=== PATIENT | female | born 1935 | race Caucasian/White ===

== ENCOUNTER 2017-03-27 16:15 | Emergency (ER) | payer MEDICARE ==
[2017-03-27] MEDS ORDERED: KETOROLAC 30 MG/ML VIAL IM ONE (16:44)
--- NOTE | 2017-03-27 16:44 | Emergency Department Record ---
History of Present Illness - General Chief Complaint: Back Pain/Injury Stated Complaint: BACK PAIN Time Seen by Provider: 03/27/17 16:36 Source: Patient Mode of Arrival: Ambulatory Limitations: No limitations - History of Present Illness Initial Comments: The patient is here due to worsening of her chronic low back pain for 5 days. The patient was vacuuming 5 days ago and then after noticed worsening pain in her low back. The pain is sharp and stabbing at times and does radiate to her buttocks at times. She denies any leg weakness, or new numbness, or any bowel or bladder issues. The pain is MUCH worse with movement. 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 The patient did try to call Dr. Bravo but was unable to get in there so she decided to come to the ER. She denies any fall, fever, dysuria, chills, recent injections or rashes. MD Complaint: Back pain Onset/Timin -: Days(s) Similar Symptoms Previously: Yes Place: Home Context: Bending, Turning/twisting - Related Data Home Medications Medication Instructions Recorded Confirmed Last Taken Aspirin [Aspir-Low] 81 mg PO DAILY tab. 12/19/15 03/27/17 03/27/17 Lisinopril/Hydrochlorothiazide 50 mcg PO DAILY tab 12/19/15 03/27/17 03/27/17 [Lisinopril-Hctz 10-12.5 mg Tab] Cyanocobalamin (Vitamin B-12) 1,200 mcg PO DAILY 03/27/17 03/27/17 03/27/17 [Vitamin B12] Hydrocodone/Acetaminophen [[place] 1 tab PO Q6H PRN 03/27/17 03/27/17 03/27/17 7.5mg/325mg] Nitroglycerin [Nitrostat] 0.4 mg SL ASDIR 03/27/17 03/27/17 Unknown Previous Rx's Medication Instructions Recorded Lidocaine Patch [Lidoderm] 1 ea TOP DAILY #7 patch 03/27/17 Methylprednisolone [Medrol Dose 4 mg PO DAILY #1 tab.ds.pk 03/27/17 Pack] Allergies Allergy/AdvReac Type Severity Reaction Status Date / Time ciprofloxacin [From Cipro] Allergy Intermediate HIVES Verified 03/27/17 16:35 ciprofloxacin HCl Allergy Intermediate HIVES Verified 03/27/17 16:35 [From Cipro] sulfamethoxazole Allergy Mild ITCHING Verified 03/27/17 16:35 [From Bactrim] trimethoprim [From Bactrim] Allergy Mild ITCHING Verified 03/27/17 16:35 Travel Screening - Travel/Exposure Within Last 30 Days Have you traveled within the last 30 days?: No - Travel/Exposure Within Last Year Have you traveled outside the [place] in the last year?: No - Additonal Travel Details Have you been exposed to anyone with a communicable illness?: No - Travel Symptoms Symptom Screening: None Review of Systems Constitutional: Denies: Chills, Fever, Malaise Eyes: Denies: Eye discharge ENT: Denies: Congestion Respiratory: Denies: Cough, Dyspnea Cardiovascular: Denies: Chest pain Musculoskeletal: Reports: Back pain Past Medical History - SOCIAL HISTORY Smoking Status: Former smoker Alcohol Use: None Drug Use: None - RESPIRATORY Hx Respiratory Disorders: Yes Hx Bronchitis: Yes Hx Pneumonia: Yes Hx Pulmonary Embolism: Yes (2010) - CARDIOVASCULAR Hx Cardio Disorders: Yes Hx CHF: Yes Hx Heart Attack: Yes (2011) - NEURO Hx Neuro Disorders: Yes 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) - GI Hx GI Disorders: No - Hx Genitourinary Disorders: No - ENDOCRINE Hx Endocrine Disorders: No Hx Diabetes: No Hx Thyroid Disease: Yes - MUSCULOSKELETAL Hx Musculoskeletal Disorders: Yes Hx Arthritis: Yes (rheumatoid) Hx Back Injury: Yes (1997) - PSYCH Hx Psych Problems: No - HEMATOLOGY/ONCOLOGY Hx Hematology/Oncology Disorders: No Family Medical History Any Significant Family History?: No Hx Cancer: Brother/Sister, Grandparents *Cancer Comment: breast cancer Hx Dementia: Father Hx Diabetes: Children Hx Heart Disease: Mother, Brother/Sister *Heart Comment: mi Physical Exam - General General Appearance: Alert, Oriented x3, Cooperative, No acute distress - Head Head exam: Atraumatic, Normocephalic, Normal inspection - Eye Eye exam: Normal appearance, PERRL - Neck Neck exam: Normal inspection, Full ROM. negative: Tenderness - Respiratory Respiratory exam: Normal lung sounds bilaterally. negative: Respiratory distress - Cardiovascular Cardiovascular Exam: Regular rate, Normal rhythm, Normal heart sounds - GI/Abdominal GI/Abdominal exam: Soft, Normal bowel sounds. negative: Tenderness - Extremities Extremities exam: Normal inspection, Full ROM, Normal capillary refill. negative: Calf tenderness, Pedal edema, Tenderness - Back Back exam: Reports: Normal inspection. Denies: Muscle spasm, Paraspinal tenderness, Rash noted, Tenderness, Vertebral tenderness - Neurological Neurological exam: Alert, Normal gait, Oriented X3, Reflexes normal, Other (Neg SLR bilaterally.). negative: Abnormal gait, Motor sensory deficit Course Vital Signs 03/27/17 16:23 Temperature 98.5 F Pulse Rate 70 Respiratory 16 Rate Blood Pressure 133/61 Pulse Ox 96 - Reevaluation(s) Reevaluation #1: The patient is doing better at this time. Her pain is much improved and she would like to go home. I did explain the xrays to her and the need for F/U with Dr. Bravo. 03/27/17 17:21 Medical Decision Making - Data Complexity MDM Data: X-Ray Ordered and/or Reviewed - Radiology Data Radiology results: Report reviewed (LS Spine: No acute changes per Rad.) Disposition Disposition: Discharge Clinical Impression: Chronic back pain Qualifiers: Back pain location: low back pain Back pain laterality: unspecified Sciatica presence: unspecified whether sciatica present Qualified Code(s): M54.5 - Low back pain Disposition: Home, Self-Care Condition: (1) Good Instructions: Chronic Back Pain (ED) Additional Instructions: Please continue your regular medicines and add the Medrol dose pack and Lidoderm. Please see Dr. Bravo next week. Return to the ER for any increased pain, fever, leg weakness or any bowel or bladder issues. Prescriptions: Lidocaine Patch [Lidoderm] 1 ea TOP DAILY #7 patch Methylprednisolone [Medrol Dose Pack] 4 mg PO DAILY #1 tab.ds.pk Forms: Patient Portal Access Time of Disposition: 17:23 Quality - Quality Measures Quality Measures: N/A - Blood Pressure Screening View Details: Yes Does Patient Have Any of the Following: No Blood Pressure Classification: Pre-Hypertensive BP Reading Systolic Measurement: 136 Diastolic Measurement: 71 Screening for High Blood Pressure: < Pre-Hypertensive BP, F/U Documented > [ G8950] Pre-Hypertensive Follow-up Interventions: Referral to alternative/primary care provider.
--- NOTE | 2017-03-28 10:55 | RADIOLOGY REPORT ---
EXAM: LUMBAR SPINE HISTORY: RIGHT SIDED LOW BACK PAIN WITH NO KNOWN INJURY. TECHNIQUE: Three views of the lumbar spine were obtained. Comparison: MRI of the lumbar spine 11/25/04. FINDINGS: There is a moderate compression fracture of T12 which is old, unchanged from the prior MRI. No acute fracture is seen. There is mild levoscoliosis. There are diffuse arthritic changes with disk space narrowing throughout the lumbar spine. Degenerative end plate spurring present throughout the lumbar spine. No destructive or erosive change seen. The pedicles are unremarkable. Surgical clips are seen in the right upper quadrant likely from a prior cholecystectomy. IMPRESSION: 1. MODERATE OLD COMPRESSION FRACTURE OF T12. 2. DIFFUSE ARTHRITIC CHANGES IN THE LUMBAR SPINE. 3. MILD LEVOSCOLIOSIS. 4. NO ACUTE PROCESS. JOB NUMBER: [id number] MTDD
== END 2017-03-27 17:32 | disposition home or self-care (01) ==
LOC: ER 16:15
DX: G89.29 Other chronic pain (principal); M54.5 Low back pain; R20.0 Anesthesia of skin
CPT/HCPCS: 99283; 96372; 99284; 72100; J1885

== ENCOUNTER 2018-03-16 15:42 | Observation (INO) | payer MEDICARE ==
[2018-03-16] MEDS ORDERED: ASPIRIN 81 MG CHEWABLE TABLET PO ONE (15:54)
[2018-03-16] MEDS ORDERED: 0.9 % SODIUM CHLORIDE 1000ML 1,000 ML IV PRN (15:54)
--- NOTE | 2018-03-16 15:56 | Emergency Department Record ---
History of Present Illness - General Chief Complaint: Chest Pain Stated Complaint: CHEST PAINS Time Seen by Provider: 03/16/18 15:53 Source: Patient, RN notes reviewed Mode of Arrival: Ambulatory - History of Present Illness Initial Comments: substernal chest pain which started 90 minutes prior to ED and she walking in the grocery store. Long history of cardiac disease with stents.PMH PE Onset/Timin -: Minutes(s) Onset: During exertion Pain Location: Left chest Pain Radiation: Neck Severity scale (1-10): 10 Consistency: Constant Improves With: Nitroglycerin Worsens With: Nothing Treatments Prior to Arrival: Nitroglycerin - Related Data Allergies Allergy/AdvReac Type Severity Reaction Status Date / Time ciprofloxacin [From Cipro] Allergy Intermediate HIVES Unverified 09/03/17 14:34 ciprofloxacin HCl Allergy Intermediate HIVES Unverified 09/03/17 14:34 [From Cipro] sulfamethoxazole Allergy Mild ITCHING Unverified 09/03/17 14:34 [From Bactrim] trimethoprim [From Bactrim] Allergy Mild ITCHING Unverified 09/03/17 14:34 Travel Screening - Travel/Exposure Within Last 30 Days Have you traveled within the last 30 days?: No - Travel/Exposure Within Last Year Have you traveled outside the [place] in the last year?: No - Additonal Travel Details Have you been exposed to anyone with a communicable illness?: No - Travel Symptoms Symptom Screening: None Review of Systems Reviewed: No additional complaints except as noted below Constitutional: Reports: As per HPI. Denies: Chills, Fever, Malaise, Night sweats, Weakness, Weight change Eyes: Reports: As per HPI. Denies: Eye discharge, Eye pain, Photophobia, Vision change ENT: Reports: As per HPI. Denies: Congestion, Dental pain, Ear pain, Epistaxis , Hearing loss, Throat pain Respiratory: Reports: As per HPI. Denies: Cough, Dyspnea, Hemoptysis, Stridor, Wheezes Cardiovascular: Reports: As per HPI, Chest pain. Denies: Arrhythmia, Dyspnea on exertion, Edema, Murmurs, Orthopnea, Palpitations, Paroxysmal nocturnal dyspnea, Rheumatic Fever, Syncope Endocrine: Reports: As per HPI. Denies: Fatigue, Heat or cold intolerance, Polydipsia, Polyuria Gastrointestinal: Reports: As per HPI. Denies: Abdominal pain, Constipation, Diarrhea, Hematemesis, Hematochezia, Melena, Nausea, Vomiting Genitourinary: Reports: As per HPI. Denies: Abnormal menses, Discharge, Dyspareunia, Dysuria, Frequency, Hematuria, Incontinence, Retention, Urgency Musculoskeletal: Reports: As per HPI. Denies: Arthralgia, Back pain, Gout, Joint swelling, Myalgia, Neck pain Skin: Reports: As per HPI. Denies: Bruising, Change in color, Change in hair/ nails, Lesions, Pruritus, Rash Neurological: Reports: As per HPI. Denies: Abnormal gait, Confusion, Headache, Numbness, Paresthesias, Seizure, Tingling, Tremors, Vertigo, Weakness Psychiatric: Reports: As per HPI. Denies: Anxiety, Auditory hallucinations, Depression, Homicidal thoughts, Suicidal thoughts, Visual hallucinations Hematological/Lymphatic: Reports: As per HPI. 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) - GI Hx GI Disorders: No - Hx Genitourinary Disorders: No - ENDOCRINE Hx Endocrine Disorders: No Hx Diabetes: No Hx Thyroid Disease: Yes - MUSCULOSKELETAL Hx Musculoskeletal Disorders: Yes Hx Arthritis: Yes (rheumatoid) Hx Back Injury: Yes (1997) - PSYCH Hx Psych Problems: No - HEMATOLOGY/ONCOLOGY Hx Hematology/Oncology Disorders: No Family Medical History Any Significant Family History?: No Hx Cancer: Brother/Sister, Grandparents *Cancer Comment: breast cancer Hx Dementia: Father Hx Diabetes: Children Hx Heart Disease: Mother, Brother/Sister *Heart Comment: mi Physical Exam - General General Appearance: Alert, Oriented x3, Cooperative, No acute distress - Head Head exam: Normal inspection - Eye Eye exam: Normal appearance, PERRL Pupils: Normal accommodation - ENT ENT exam: Normal exam, Mucous membranes moist, Normal external ear exam, Normal orophraynx, TM's normal bilaterally Ear exam: Normal external inspection. negative: External canal tenderness Nasal Exam: Normal inspection. negative: Discharge, Sinus tenderness Mouth exam: Normal external inspection, Tongue normal Teeth exam: Normal inspection. negative: Dental caries Throat exam: Normal inspection. negative: Tonsillar erythema, Tonsillar exudate - Neck Neck exam: Normal inspection, Full ROM. negative: Tenderness - Respiratory Respiratory exam: Normal lung sounds bilaterally. negative: Respiratory distress - Cardiovascular Cardiovascular Exam: Regular rate, Normal rhythm, Normal heart sounds - GI/Abdominal GI/Abdominal exam: Soft, Normal bowel sounds. negative: Tenderness - Rectal Rectal exam: Deferred - exam: Deferred - Extremities Extremities exam: Normal inspection, Full ROM, Normal capillary refill. negative: Tenderness - Back Back exam: Reports: Normal inspection, Full ROM. Denies: Muscle spasm, Rash noted, Tenderness - Neurological Neurological exam: Alert, Normal gait, Oriented X3, Reflexes normal - Psychiatric Psychiatric exam: Normal affect, Normal mood - Skin Skin exam: Dry, Intact, Normal color, Warm Course Vital Signs 03/16/18 15:43 Temperature 98.2 F Pulse Rate 81 Respiratory 16 Rate Blood Pressure 145/73 Pulse Ox 93 L - Reevaluation(s) Reevaluation #1: patient refusing to go to [facility] for admission. 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 Kieran her present for the discussion. 03/16/18 17:19 Reevaluation #2: patient is feeling better and wants to go home 03/16/18 17:36 Reevaluation #3: patient states she will not go to [facility] 03/16/18 18:30 Medical Decision Making - Data Complexity MDM Data: Labs Ordered and/or Reviewed, X-Ray Ordered and/or Reviewed (CT bilateral pulmonary embolism small and in the periphery) - Lab Data Result diagrams: 03/16/18 15:45 03/16/18 15:45 Disposition Clinical Impression: Chest pain Qualifiers: Chest pain type: unspecified Qualified Code(s): R07.9 - Chest pain, unspecified CAD (coronary artery disease) Qualifiers: Coronary Disease-Associated Artery/Lesion type: [place] artery [place] vs. transplanted heart: [place] heart Associated angina: with stable angina Qualified Code(s): I25.118 - Atherosclerotic heart disease of [place] coronary artery with other forms of angina pectoris Pulmonary embolism Qualifiers: Pulmonary embolism type: other Chronicity: acute Acute cor pulmonale presence: without acute cor pulmonale Qualified Code(s): I26.99 - Other pulmonary embolism without acute cor pulmonale Decision to Admit: Admit from ER Condition: (2) Stable Forms: Patient Portal Access Time of Disposition: 17:24 Quality - Quality Measures Quality Measures: N/A - Blood Pressure Screening Does Patient Have Any of the Following: No Blood Pressure Classification: Hypertensive Reading Systolic Measurement: 145 Diastolic Measurement: 73 Screening for High Blood Pressure: < Pre-Hypertensive BP, F/U Documented > [ G8950] Pre-Hypertensive Follow-up Interventions: Referral to alternative/primary care provider.
[2018-03-16] MEDS: NITROGLYCERIN 0.4MG SL TABLET #25 BTL SL PRN ×2 (16:01→16:17)
[2018-03-16 16:03] LABS: BASO % 0.4 % (0-6); EOS % 0.5 % (0-6); GRAN % 71.3 % (47-80); HEMATOCRIT 43.2 % (35.0-47.0); HEMOGLOBIN 14.2 gm/dl (11.6-16.0); LYMPH % 19.3 % (16-45); MEAN CELL VOLUME 93.1 fl (81-97); MEAN CORPUSCULAR HEMOGLOBIN 30.6 pg (27-33); MEAN CORPUSCULAR HGB CONC 32.9 g/dl (32-36); MEAN PLATELET VOLUME 10.1 fl (7.4-10.4); MONO % 8.5 % (0-9); PLATELET COUNT 257 K/uL (130-400); RED BLOOD COUNT 4.64 M/uL (3.80-5.40)
[2018-03-16 16:15] LABS: BLOOD UREA NITROGEN 24 mg/dL (8-23)
[2018-03-16 16:16] LABS: CREATININE 0.6 mg/dL (0.5-0.9); EST GLOMERULAR FILTRATION RATE > 60 mL/min
[2018-03-16 16:18] LABS: GLUCOSE,RANDOM 140 mg/dL (74-109)
[2018-03-16] MEDS ORDERED: ENOXAPARIN 100 MG/ML SYR SQ ONE (18:32)
[2018-03-16] MEDS ORDERED: SODIUM CHLORIDE NASAL SPRAY PRN (19:28)
[2018-03-16] MEDS ORDERED: NITROGLYCERIN 0.4MG SL TABLET #25 BTL SL SCH (19:28)
[2018-03-16] MEDS ORDERED: Non-Formulary MISC (Leflunomide [Leflunomide] 10 MG) PO SCH (19:28)
[2018-03-16] MEDS: HYDROCODONE/APAP 7.5/325MG TABLET PO PRN (19:49)
[2018-03-16] MEDS ORDERED: MELATONIN 5 MG TABLET PO PRN (21:26)
[2018-03-16] MEDS ORDERED: ENOXAPARIN 60 MG/0.6 ML SYR SQ SCH (22:00)
[2018-03-16] MEDS ORDERED: GABAPENTIN 300 MG CAPSULE PO SCH ×2 (22:00)
[2018-03-17 06:28] LABS: BASO % 0.5 % (0-6); EOS % 0.7 % (0-6); GRAN % 66.6 % (47-80); HEMATOCRIT 40.2 % (35.0-47.0); HEMOGLOBIN 12.9 gm/dl (11.6-16.0); LYMPH % 23.3 % (16-45); MEAN CELL VOLUME 94.4 fl (81-97); MEAN CORPUSCULAR HEMOGLOBIN 30.3 pg (27-33); MEAN CORPUSCULAR HGB CONC 32.1 g/dl (32-36); MEAN PLATELET VOLUME 10.1 fl (7.4-10.4); MONO % 8.9 % (0-9); PLATELET COUNT 225 K/uL (130-400); RED BLOOD COUNT 4.26 M/uL (3.80-5.40); RED CELL DISTRIBUTION WIDTH 12.8 % (11.5-14.5); WHITE BLOOD COUNT W/O DIFF 5.7 K/uL (4.2-12.2)
[2018-03-17 06:48] LABS: ALB/GLOB RATIO 1.8 (1.1-1.8); ALBUMIN 3.8 g/dL (4.0-5.0); ALKALINE PHOSPHATASE 40 U/L (35-104); ALT/SGPT 10 U/L (<33); AST/SGOT 14 U/L (10.0-35.0); BLOOD UREA NITROGEN 17 mg/dL (8-23); CREATININE 0.5 mg/dL (0.5-0.9); EST GLOMERULAR FILTRATION RATE > 60 mL/min; GLUCOSE,RANDOM 109 mg/dL (74-109); TOTAL PROTEIN 5.9 g/dL (6.6-8.7)
[2018-03-17] MEDS ORDERED: LEVOTHYROXINE SODIUM 50 MCG TABLET PO SCH (07:00)
--- NOTE | 2018-03-17 09:04 | RADIOLOGY REPORT ---
EXAM: CHEST HISTORY: SUDDEN ONSET OF CHEST PAIN RADIATING TO THE LEFT JAW AND LEFT ARM. TECHNIQUE: Two views of the chest were obtained. Comparison: 10/09/17. FINDINGS: The heart is borderline enlarged. There is a large hiatal hernia. There is no acute infiltrate or vascular congestion identified. No free air beneath the diaphragm. IMPRESSION: 1. BORDERLINE TO MILD CARDIOMEGALY. 2. LARGE HIATAL HERNIA. 3. NO ACUTE CARDIAC OR PULMONARY ABNORMALITY. JOB NUMBER: [id number] [facility]
--- NOTE | 2018-03-17 09:11 | CT ANGIOGRAM REPORT ---
EXAM: CT ANGIOGRAPHY OF THE THORAX HISTORY: CHEST PAIN STARTED TODAY. TECHNIQUE: CT angiography of the thorax was performed. 76 ml of Omnipaque 350 contrast were used for this examination. Coronal and sagittal post processed MIP images are performed on an independent workstation as part of this examination. Comparison: CT of the thorax 09/27/[address] angiography of the thorax . FINDINGS: There are small bilateral pulmonary emboli. These are identified in the lower lobe pulmonary artery branches bilaterally. No large central embolus seen. No area of lung consolidation identified. No lung mass. No enlarged mediastinal or hilar lymph nodes identified. There is a large hiatal hernia present. There are atherosclerotic changes in the thoracic aorta. No aneurysm or dissection. There are coronary artery calcifications present. No pericardial effusion. Limited upper abdominal images are unremarkable. There is a stable right renal cyst partially included on this examination. IMPRESSION: 1. THERE ARE SMALL PULMONARY EMBOLI IN THE LUNG BASES BILATERALLY. 2. THERE IS A LARGE HIATAL HERNIA PRESENT. 3. CORONARY ARTERY CALCIFICATIONS. 4. OTHER CHRONIC FINDINGS ABOVE. 5. RESULTS CALLED TO DR. CARABALLO IN THE EMERGENCY ROOM AT 6:27 P.M. ON 03/16/18. JOB NUMBER: [id number] MTDD
[2018-03-17] MEDS ORDERED: ISOSORBIDE MONONITRATE 30 MG TAB.ER.24H PO SCH (10:00)
[2018-03-17] MEDS ORDERED: GABAPENTIN 300 MG CAPSULE PO SCH (10:00)
[2018-03-17] MEDS ORDERED: ASPIRIN 81 MG TABEC PO SCH ×2 (10:00→22:00)
[2018-03-17] MEDS ORDERED: FOLIC ACID 1 MG TABLET PO SCH (10:00)
[2018-03-17] MEDS ORDERED: CYANOCOBALAMIN PO SCH (10:00)
[2018-03-17] MEDS ORDERED: RIVAROXABAN 15 MG TABLET PO SCH (10:00)
--- NOTE | 2018-03-17 10:09 | History & Physical ---
History of Present Illness - Date of Service Date of Service for History & Physical: 03/17/18 - History of Present Illness Admitting Diagnosis: bilateral pulmonary embolism History of Present Illness: Mrs. Canas is an 82 y/o female who arrived to ED yesterday with c/o substernal chest pain. Chest pain started about 90 minutes prior to arrival and was triggered by carrying groceries into her house. Chest pain was associated with diaphoresis only. After onset of chest pain she took nitro x 2 with no relief and came directly to ED. 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 She denies any previous history of clotting disorders. 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 Does follow with Dr Patton for CHF with next follow up appointment 04/04/18. She denies any further underlying changes in activity, no activity intolerance or shortness of breath with activity prior to chest pain event yesterday. Otherwise feels she has been ah her baseline health. While in the ED d-dimer was elevated prompting CTA of chest which revealed bilateral PE. Otherwise work up for acute infectious process was negative. CXR revealed cardiomegaly and hiatal hernia. Lovenox 75mg was initiated in the ED and she was transferred to the floor in stable condition. It was advised in the ED she be transferred to a larger hospital but she declined. 03/17/18- NO acute changes as reported by nursing staff over night. She has been ambulating without difficulty, no c/o dyspnea at rest or with activity, telemetry has remained NSR, no acute bleeding issues. Upon exam she reports she has no chest pain, denies MARK with activity, feels otherwise at her baseline health and is ready for discharge. Oxygen sats have remained above 92% on room air, VSS. Plan to bridge Lovenox to Xarelto today. Travel Screening - Travel/Exposure Within Last 30 Days Have you traveled within the last 30 days?: No - Travel/Exposure Within Last Year Have you traveled outside the [place] in the last year?: No - Additonal Travel Details Have you been exposed to anyone with a communicable illness?: No - Travel Symptoms Symptom Screening: None Review of Systems Constitutional: Reports: As per HPI. Denies: Chills, Fever, Malaise, Night sweats, Weakness, Weight change Eyes: Reports: As per HPI. Denies: Eye discharge, Eye pain, Photophobia, Vision change ENT: Reports: As per HPI. Denies: Congestion, Dental pain, Ear pain, Epistaxis , Hearing loss, Throat pain Respiratory: Reports: As per HPI. Denies: Cough, Dyspnea, Hemoptysis, Stridor, Wheezes Cardiovascular: Reports: As per HPI, Chest pain. Denies: Arrhythmia, Dyspnea on exertion, Edema, Murmurs, Orthopnea, Palpitations, Paroxysmal nocturnal dyspnea, Rheumatic Fever, Syncope Endocrine: Reports: As per HPI. Denies: Fatigue, Heat or cold intolerance, Polydipsia, Polyuria Gastrointestinal: Reports: As per HPI. Denies: Abdominal pain, Constipation, Diarrhea, Hematemesis, Hematochezia, Melena, Nausea, Vomiting Genitourinary: Reports: As per HPI. Denies: Abnormal menses, Discharge, Dyspareunia, Dysuria, Frequency, Hematuria, Incontinence, Retention, Urgency Musculoskeletal: Reports: As per HPI. Denies: Arthralgia, Back pain, Gout, Joint swelling, Myalgia, Neck pain Skin: Reports: As per HPI. Denies: Bruising, Change in color, Change in hair/ nails, Lesions, Pruritus, Rash Neurological: Reports: As per HPI. Denies: Abnormal gait, Confusion, Headache, Numbness, Paresthesias, Seizure, Tingling, Tremors, Vertigo, Weakness Psychiatric: Reports: As per HPI. Denies: Anxiety, Auditory hallucinations, Depression, Homicidal thoughts, Suicidal thoughts, Visual hallucinations Hematological/Lymphatic: Reports: As per HPI. 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) - GI Hx GI Disorders: No - Hx Genitourinary Disorders: No - ENDOCRINE Hx Endocrine Disorders: No Hx Diabetes: No Hx Thyroid Disease: Yes - MUSCULOSKELETAL Hx Musculoskeletal Disorders: Yes Hx Arthritis: Yes (rheumatoid) Hx Back Injury: Yes (1997) - PSYCH Hx Psych Problems: No - HEMATOLOGY/ONCOLOGY Hx Hematology/Oncology Disorders: No Family Medical History Any Significant Family History?: No Hx Cancer: Brother/Sister, Grandparents *Cancer Comment: breast cancer Hx Dementia: Father Hx Diabetes: Children Hx Heart Disease: Mother, Brother/Sister *Heart Comment: mi H&P Meds/Allergies - Allergies Allergies: Allergies Allergy/AdvReac Type Severity Reaction Status Date / Time ciprofloxacin [From Cipro] Allergy Intermediate HIVES Unverified 09/03/17 14:34 ciprofloxacin HCl Allergy Intermediate HIVES Unverified 09/03/17 14:34 [From Cipro] sulfamethoxazole Allergy Mild ITCHING Unverified 09/03/17 14:34 [From Bactrim] trimethoprim [From Bactrim] Allergy Mild ITCHING Unverified 09/03/17 14:34 - Home Medications Home Medications Medication Instructions Recorded Confirmed Last Taken Gabapentin [Neurontin] 300 mg [id number] 03/16/18 03/16/18 03/16/18 300 Gabapentin [Neurontin] 600 mg QHS 03/16/18 03/16/18 03/15/18 Multivitamin [Multi-Vitamin Daily] 1 each PO DAILY 03/17/18 03/17/18 Unknown - Active Medications Active Medications: Current Medications Hydrocodone Bitart/Acetaminophen ([place] 7.5mg/325mg) 1 each PO QID PRN PRN Reason: ANALGESIA Last Admin: 03/16/18 19:49 Dose: 1 each Aspirin (Ecotrin (Ec)) 81 mg PO QHS [facility] Folic Acid () 1 mg PO DAILY [facility] Last Admin: 03/17/18 09:51 Dose: 1 mg Gabapentin (Neurontin) 600 mg PO QHS [facility] Last Admin: 03/16/18 21:32 Dose: 600 mg Gabapentin (Neurontin) 300 mg PO QAM [facility] Last Admin: 03/17/18 09:51 Dose: 300 mg Sodium Chloride () 1,000 mls @ 15 mls/hr IV .Q24H PRN PRN Reason: LARGE VOLUME IV Last Admin: 03/16/18 16:03 Dose: 15 mls/hr Isosorbide Mononitrate (Imdur) 30 mg PO DAILY [facility] Last Admin: 03/17/18 09:51 Dose: 30 mg Levothyroxine Sodium (Synthroid) 50 mcg PO DAILYTHY DANIELA Last Admin: 03/17/18 06:32 Dose: 50 mcg Melatonin (Melatonin) 5 mg PO QHS PRN PRN Reason: SLEEP Last Admin: 03/16/18 21:32 Dose: 5 mg Nitroglycerin (Nitrostat 0.4mg) 0.4 mg SL Q5MIN PRN PRN Reason: CHEST PAIN Last Admin: 03/16/18 16:17 Dose: 0.4 mg Rivaroxaban (Xarelto) 15 mg PO BID [facility] Last Admin: 03/17/18 09:51 Dose: 15 mg Sodium Chloride ([place] Nasal) 1 ml NA BID PRN PRN Reason: COUGH Physical Exam - Vital Signs Vital Signs: Vital Signs - Last 24 Hrs Temp Pulse Pulse Pulse Resp BP BP 03/17/18 06:00 98.6 F 72 16 03/16/18 20:11 74 16 03/16/18 19:45 98.5 F 79 16 154/87 03/16/18 19:24 74 16 160/76 03/16/18 19:00 74 16 03/16/18 18:30 76 16 03/16/18 18:00 74 16 03/16/18 17:30 76 16 03/16/18 17:08 70 16 03/16/18 16:30 70 16 03/16/18 16:22 81 16 03/16/18 16:14 75 16 03/16/18 16:06 79 16 03/16/18 16:00 71 16 03/16/18 15:43 98.2 F 81 16 145/73 BP Pulse Ox 03/17/18 06:00 131/77 94 L 03/16/18 20:11 03/16/18 19:45 97 03/16/18 19:24 96 03/16/18 19:00 140/69 03/16/18 18:30 147/78 03/16/18 18:00 143/70 96 03/16/18 17:30 128/81 03/16/18 17:08 119/63 03/16/18 16:30 116/61 03/16/18 16:22 93/48 95 03/16/18 16:14 121/60 95 03/16/18 16:06 111/92 96 03/16/18 16:00 148/69 96 03/16/18 15:43 93 L - General General Appearance: Alert, Oriented x3, Cooperative, No acute distress Limitations: No limitations - Head Head exam: Normal inspection - Eye Eye exam: Normal appearance, PERRL Pupils: Normal accommodation - ENT ENT exam: Normal exam, Mucous membranes moist, Normal external ear exam, Normal orophraynx, TM's normal bilaterally Ear exam: Normal external inspection. negative: External canal tenderness Nasal Exam: Normal inspection. negative: Discharge, Sinus tenderness Mouth exam: Normal external inspection, Tongue normal Teeth exam: Normal inspection. negative: Dental caries Throat exam: Normal inspection. negative: Tonsillar erythema, Tonsillar exudate - Neck Neck exam: Normal inspection, Full ROM. negative: Tenderness - Respiratory Respiratory exam: Normal lung sounds bilaterally. negative: Respiratory distress - Cardiovascular Cardiovascular Exam: Regular rate, Normal rhythm, Normal heart sounds Peripheral Pulses: 2+: Dorsalis Pedis (R), Dorsalis Pedis (L) - GI/Abdominal GI/Abdominal exam: Soft, Normal bowel sounds. negative: Tenderness - Rectal Rectal exam: Deferred - exam: Deferred - Extremities Extremities exam: Normal inspection, Full ROM, Normal capillary refill. negative: Tenderness - Back Back exam: Reports: Normal inspection, Full ROM. Denies: Muscle spasm, Rash noted, Tenderness - Neurological Neurological exam: Alert, Normal gait, Oriented X3, Reflexes normal - Psychiatric Psychiatric exam: Normal affect, Normal mood - Skin Skin exam: Dry, Intact, Normal color, Warm Results - Labs Result Diagrams: 03/17/18 06:21 03/17/18 06:21 Labs Last 24 Hours: Laboratory Results - last 24 hr 03/16/18 03/16/18 03/16/18 15:45 15:45 15:45 WBC 8.0 RBC 4.64 Hgb 14.2 Hct 43.2 MCV 93.1 MCH 30.6 MCHC 32.9 RDW 13.0 Plt Count 257 MPV 10.1 Gran % 71.3 Lymphocytes % 19.3 Monocytes % 8.5 Eosinophils % 0.5 Basophils % 0.4 APTT 22.3 L D-Dimer Sodium 141 Potassium 3.6 Chloride 100 Carbon Dioxide 30.0 H Anion Gap 11.0 BUN 24 H Creatinine 0.6 Estimated GFR > 60 Random Glucose 140 H Calcium 9.2 Total Bilirubin AST ALT Alkaline Phosphatase Troponin T < 0.010 Total Protein Albumin Globulin Albumin/Globulin Ratio 03/16/18 03/17/18 03/17/18 15:45 06:21 06:21 WBC 5.7 RBC 4.26 Hgb 12.9 Hct 40.2 MCV 94.4 MCH 30.3 MCHC 32.1 RDW 12.8 Plt Count 225 MPV 10.1 Gran % 66.6 Lymphocytes % 23.3 Monocytes % 8.9 Eosinophils % 0.7 Basophils % 0.5 APTT D-Dimer 2.13 H Sodium Potassium Chloride Carbon Dioxide Anion Gap BUN Creatinine Estimated GFR Random Glucose Calcium Total Bilirubin AST ALT Alkaline Phosphatase Troponin T < 0.010 Total Protein Albumin Globulin Albumin/Globulin Ratio 03/17/18 06:21 WBC RBC Hgb Hct MCV MCH MCHC RDW Plt Count MPV Gran % Lymphocytes % Monocytes % Eosinophils % Basophils % APTT D-Dimer Sodium 144 Potassium 3.8 Chloride 106 Carbon Dioxide 29.0 Anion Gap 9.0 BUN 17 Creatinine 0.5 Estimated GFR > 60 Random Glucose 109 Calcium 8.7 L Total Bilirubin 0.50 AST 14 ALT 10 Alkaline Phosphatase 40 Troponin T Total Protein 5.9 L Albumin 3.8 L Globulin 2.1 Albumin/Globulin Ratio 1.8 - Imaging and Cardiology Chest x-ray Status: Report reviewed (1- cardiomegaly, 2- hiatal hernia) CT scan - chest Status: Report reviewed (CTA- bilateral pulmonary embolism) VTE H&P Assessment - Risk for VTE Risk for VTE: Yes Risk Level: Moderate Risk Assessment Date: 03/17/18 Risk Assessment Time: 10:20 VTE Orders Placed or Will Be Placed: Yes Plan - Inpatient Certification Inpatient Certification: Admit to inpatient care: Based on my medical assessment, after consideration of patient's risk factors (age, co-morbidities and patient presenting symptoms and acuity), I expect that this patient will remain in the hospital greater than or equal to two midnights and that the services needed warrant inpatient care because: Patient Risk Factors: [] Estimated length of stay: [] The patient may reasonably be expected to be discharged or transferred to a hospital within 96 hours after admission to [facility]. Services needed: [] Post hospital care (if known): [] I certify that my determination is in accordance with my understanding of Medicare requirements for reasonable and necessary inpatient services. - Detailed Diagnosis and Plan (1) Pulmonary embolism Current Visit: Yes Status: Acute Qualifiers: Pulmonary embolism type: other Chronicity: acute Acute cor pulmonale presence: without acute cor pulmonale Qualified Code(s): I26.99 - Other pulmonary embolism without acute cor pulmonale Base Code: I26.99 - OTHER PULMONARY EMBOLISM WITHOUT ACUTE COR PULMONALE Comment: 03/17/18 - D-Dimer elevated in ED, CTA of chest reveals bilateral PE - has previous history of TIA in her 30's, PE 2010 and current, ID x 2 - Lovenox 60mg BID changed to Xarelto 15mg BID x 21 days then 20mg daily - plan to discharge later today after first dose of Xarelto has been administered - follow up with Dr Patton tomorrow as scheduled - follow up with PCP in 3 weeks as scheduled (2) CAD (coronary artery disease) Current Visit: Yes Status: Chronic Qualifiers: Coronary Disease-Associated Artery/Lesion type: circle artery [place] vs. transplanted heart: circle heart Associated angina: with stable angina Qualified Code(s): I25.118 - Atherosclerotic heart disease of circle coronary artery with other forms of angina pectoris Base Code: I25.10 - ATHSCL HEART DISEASE OF [place] CORONARY ARTERY W/O ANG PCTRS Comment: 03/17/18 - chronic - follows with Dr Patton, next appointment 03/18/18 - continue meds as ordered (3) CHF (congestive heart failure) Current Visit: Yes Status: Chronic Qualifiers: Heart failure type: unspecified Heart failure chronicity: chronic Qualified Code(s): I50.9 - Heart failure, unspecified Base Code: I50.9 - HEART FAILURE, UNSPECIFIED Comment: 03/17/18 - chronic - continue Imdur 30mg daily (4) Neuropathy Current Visit: Yes Status: Chronic Base Code: G62.9 - POLYNEUROPATHY, UNSPECIFIED Comment: 03/17/18 - chronic, patient reports caused by past lower back injury - continue Neurontin 300mg Q am, 600mg Q pm (5) Hypothyroidism Current Visit: Yes Status: Chronic Qualifiers: Hypothyroidism type: unspecified Qualified Code(s): E03.9 - Hypothyroidism , unspecified Base Code: E03.9 - HYPOTHYROIDISM, UNSPECIFIED Comment: 03/17/18 - chronic - continue Levothyroxine 50mcg daily (6) Full code status Current Visit: Yes Status: Acute Base Code: Z78.9 - OTHER SPECIFIED HEALTH STATUS (7) DVT prophylaxis Current Visit: Yes Status: Acute Base Code: [id number] - Comment: 03/17/18 - Lovenox 60mg BID changed to Xarelto 15mg BID for bilat PE - nursing to encourage frequent ambulation - up ad oma
[2018-03-17] MEDS: HYDROCODONE/APAP 7.5/325MG TABLET PO PRN (11:42)
--- NOTE | 2018-03-17 12:39 | Discharge Summary ---
Providers Discharge Summary Date: 03/17/18 Date of admission: 03/16/18 19:35 Expected Date of Discharge: 03/17/18 Attending physician: LOUIS TYLER Primary care physician: LOUIS TYLER Physical Exam - Vital Signs Vital Signs: Vital Signs - Last 24 Hrs Temp Pulse Pulse Pulse Resp BP BP 03/17/18 10:00 98.1 F 88 16 03/17/18 09:00 16 03/17/18 06:00 98.6 F 72 16 03/16/18 20:11 74 16 03/16/18 19:45 98.5 F 79 16 154/87 03/16/18 19:24 74 16 160/76 03/16/18 19:00 74 16 03/16/18 18:30 76 16 03/16/18 18:00 74 16 03/16/18 17:30 76 16 03/16/18 17:08 70 16 03/16/18 16:30 70 16 03/16/18 16:22 81 16 03/16/18 16:14 75 16 03/16/18 16:06 79 16 03/16/18 16:00 71 16 03/16/18 15:43 98.2 F 81 16 145/73 BP Pulse Ox 03/17/18 10:00 133/71 96 03/17/18 09:00 03/17/18 06:00 131/77 94 L 03/16/18 20:11 03/16/18 19:45 97 03/16/18 19:24 96 03/16/18 19:00 140/69 03/16/18 18:30 147/78 03/16/18 18:00 143/70 96 03/16/18 17:30 128/81 03/16/18 17:08 119/63 03/16/18 16:30 116/61 03/16/18 16:22 93/48 95 03/16/18 16:14 121/60 95 03/16/18 16:06 111/92 96 03/16/18 16:00 148/69 96 03/16/18 15:43 93 L - General General Appearance: Alert, Oriented x3, Cooperative, No acute distress Limitations: No limitations - Head Head exam: Normal inspection - Eye Eye exam: Normal appearance, PERRL Pupils: Normal accommodation - ENT ENT exam: Normal exam, Mucous membranes moist, Normal external ear exam, Normal orophraynx, TM's normal bilaterally Ear exam: Normal external inspection. negative: External canal tenderness Nasal Exam: Normal inspection. negative: Discharge, Sinus tenderness Mouth exam: Normal external inspection, Tongue normal Teeth exam: Normal inspection. negative: Dental caries Throat exam: Normal inspection. negative: Tonsillar erythema, Tonsillar exudate - Neck Neck exam: Normal inspection, Full ROM. negative: Tenderness - Respiratory Respiratory exam: Normal lung sounds bilaterally. negative: Respiratory distress - Cardiovascular Cardiovascular Exam: Regular rate, Normal rhythm, Normal heart sounds Peripheral Pulses: 2+: Dorsalis Pedis (R), Dorsalis Pedis (L) - GI/Abdominal GI/Abdominal exam: Soft, Normal bowel sounds. negative: Tenderness - Rectal Rectal exam: Deferred - exam: Deferred - Extremities Extremities exam: Normal inspection, Full ROM, Normal capillary refill. negative: Tenderness - Back Back exam: Reports: Normal inspection, Full ROM. Denies: Muscle spasm, Rash noted, Tenderness - Neurological Neurological exam: Alert, Normal gait, Oriented X3, Reflexes normal - Psychiatric Psychiatric exam: Normal affect, Normal mood - Skin Skin exam: Dry, Intact, Normal color, Warm Hospitalization - Hospitalization Admission Diagnosis: bilateral pulmonary embolism - Problem List/Discharge Diagnosis (1) Pulmonary embolism Status: Acute Discharge Diagnosis: Pulmonary embolism type: other Chronicity: acute Acute cor pulmonale presence: without acute cor pulmonale Qualified Code(s): I26.99 - Other pulmonary embolism without acute cor pulmonale Base Code: I26.99 - OTHER PULMONARY EMBOLISM WITHOUT ACUTE COR PULMONALE Comment: 03/17/18 - D-Dimer elevated in ED, CTA of chest reveals bilateral PE - has previous history of TIA in her 30's, PE 2010 and current, MS x 2 - Lovenox 60mg BID changed to Xarelto 15mg BID x 21 days then 20mg daily - plan to discharge later today after first dose of Xarelto has been administered - follow up with Dr Patton tomorrow as scheduled - follow up with PCP in 3 weeks as scheduled (2) CAD (coronary artery disease) Status: Chronic Discharge Diagnosis: Coronary Disease-Associated Artery/Lesion type: [place] artery [place] vs. transplanted heart: [place] heart Associated angina: with stable angina Qualified Code(s): I25.118 - Atherosclerotic heart disease of [place] coronary artery with other forms of angina pectoris Base Code: I25.10 - ATHSCL HEART DISEASE OF [place] CORONARY ARTERY W/O ANG PCTRS Comment: 03/17/18 - chronic - follows with Dr Patton, next appointment 03/18/18 - continue meds as ordered (3) CHF (congestive heart failure) Status: Chronic Discharge Diagnosis: Heart failure type: unspecified Heart failure chronicity: chronic Qualified Code(s): I50.9 - Heart failure, unspecified Base Code: I50.9 - HEART FAILURE, UNSPECIFIED Comment: 03/17/18 - chronic - continue Imdur 30mg daily (4) Neuropathy Status: Chronic Base Code: G62.9 - POLYNEUROPATHY, UNSPECIFIED Comment: 03/17 - chronic, patient reports caused by past lower back injury - continue Neurontin 300mg Q am, 600mg Q pm (5) Hypothyroidism Status: Chronic Discharge Diagnosis: Hypothyroidism type: unspecified Qualified Code(s): E03.9 - Hypothyroidism , unspecified Base Code: E03.9 - HYPOTHYROIDISM, UNSPECIFIED Comment: 03/17/18 - chronic - continue Levothyroxine 50mcg daily (6) Full code status Status: Acute Base Code: Z78.9 - OTHER SPECIFIED HEALTH STATUS (7) DVT prophylaxis Status: Acute Base Code: [id number] - Comment: 03/17/18 - Lovenox 60mg BID changed to Xarelto 15mg BID for bilat PE - nursing to encourage frequent ambulation - up ad oma - Hospitalization Course Disposition: Home, Self-Care Hospital Course: Mrs. Canas is an 82 y/o female who arrived to ED yesterday with c/o substernal chest pain. Chest pain started about 90 minutes prior to arrival and was triggered by carrying groceries into her house. Chest pain was associated with diaphoresis only. After onset of chest pain she took nitro x 2 with no relief and came directly to ED. PMX includes MS x 2, PE 2010, TIA in her 30's, CHF, previous smoker, bronchitis. She denies any previous history of clotting disorders. Does not recall being on custodial anticoagulant therapy after diagnosis of PE in 2010 but has been taking an EC ASA 81mg daily. Does follow with Dr Patton for CHF with next follow up appointment 04/04/18. She denies any further underlying changes in activity, no activity intolerance or shortness of breath with activity prior to chest pain event yesterday. Otherwise feels she has been ah her baseline health. While in the ED d-dimer was elevated prompting CTA of chest which revealed bilateral PE. Otherwise work up for acute infectious process was negative. CXR revealed cardiomegaly and hiatal hernia. Lovenox 75mg was initiated in the ED and she was transferred to the floor in stable condition. It was advised in the ED she be transferred to a larger hospital but she declined. 03/17/18 0930- NO acute changes as reported by nursing staff over night. She has been ambulating without difficulty, no c/o dyspnea at rest or with activity, telemetry has remained NSR, no acute bleeding issues. Upon exam she reports she has no chest pain, denies MARK with activity, feels otherwise at her baseline health and is ready for discharge. Oxygen sats have remained above 92% on room air, VSS. Plan to bridge Lovenox to Xarelto today. 03/17/18 1233- Has tolerated Xarelto without nausea, evidence of acute bleed. No acute changes since admission. Chest pain has resolved, troponins negative, vitals have remained stable. Plan for follow up with Dr Patton tomorrow and PCP in 2-3 weeks. Likely will need life-long Xarelto due to recurrent clot related episodes. Procedures: Imaging and X-Rays 03/16/18 15:54 CHEST 1 VIEW [RAD] Stat 03/16/18 17:26 CHEST CTA w contrast [CTA] Stat Cardiology Procedures 03/16/18 15:54 Analytical Data Miner NOW EKG NOW Abnormal Labs: Abnormal Lab Results 03/16/18 03/16/18 03/16/18 Range/Units 15:45 15:45 15:45 APTT 22.3 L (24.5-39.1) SECONDS D-Dimer 2.13 H (0-0.59) mg/L FEU Carbon Dioxide 30.0 H (22-29) mmol/L BUN 24 H (8-23) mg/dL Random Glucose 140 H (74-109) mg/dL Calcium (8.8-10.2) mg/dL Total Protein (6.6-8.7) g/dL Albumin (4.0-5.0) g/dL 03/17/18 Range/Units 06:21 APTT (24.5-39.1) SECONDS D-Dimer (0-0.59) mg/L FEU Carbon Dioxide (22-29) mmol/L BUN (8-23) mg/dL Random Glucose (74-109) mg/dL Calcium 8.7 L (8.8-10.2) mg/dL Total Protein 5.9 L (6.6-8.7) g/dL Albumin 3.8 L (4.0-5.0) g/dL Condition at Discharge: (2) Stable Discharge Medications - Discharge Medications Prescriptions: Rivaroxaban [Xarelto] 15 mg PO BID 21 Days #42 tablet Rivaroxaban [Xarelto] 20 mg PO DAILY 30 Days #30 tab Home Medications: Ambulatory Orders Aspirin [Aspir-Low] 81 mg PO QHS tab.dr 12/19/15 [Last Taken 03/16/18] Cyanocobalamin (Vitamin B-12) [Vitamin B12] 1,200 mcg PO DAILY 03/27/17 [Last Taken 03/16/18] Nitroglycerin [Nitrostat] 0.4 mg SL Q5MIN PRN 03/27/17 [Last Taken 03/16/18] Isosorbide Mononitrate [Isosorbide Mononitrate ER] 30 mg PO DAILY 30 Days #30 tab 08/07/17 [Last Taken 03/16/18] Gabapentin [Neurontin] 300 mg [id number] 03/16/18 [Last Taken 03/16/18 300] Gabapentin [Neurontin] 600 mg QHS 03/16/18 [Last Taken 03/15/18] Melatonin 5 mg PO QHS PRN tablet 03/17/18 [Last Taken Unknown] Multivitamin [Multi-Vitamin Daily] 1 each PO DAILY 03/17/18 [Last Taken Unknown] Nitroglycerin 0.4MG [Nitrostat 0.4MG] 0.4 mg SL Q5MIN PRN tab.subl 03/17/18 [ Last Taken Unknown] Rivaroxaban [Xarelto] 15 mg PO BID 21 Days #42 tablet 03/17/18 [Last Taken Unknown] Rivaroxaban [Xarelto] 20 mg PO DAILY 30 Days #30 tab 03/17/18 [Last Taken Unknown] Discharge Plan - Discharge Instructions Activity at Discharge: Increase Activity as Tolerated Diet at Discharge: Low Fat, Low Cholesterol, Low Salt Diet Instructions: Pulmonary Embolism (DC) Additional Instructions: 2 Activity: Increase Activity as Tolerated 2 Diet: Low Fat, Low Cholesterol Low Salt Diet 2 Consults: [] 2 Follow Up: [Follow up with Dr. Tyler as scheduled on 03/27/18.] 2 Dressing/Wound Care: (Type) (Change) 2 Additional: [Continue home medications New medications Xarelto, continue taking the xarelto as prescribed Return to the emergency room with any new or worsening symptoms] Quality Measures - Quality Measures Quality Measures: Advance Directives, Coronary Artery Disease: Antiplatelet Therapy, Documentation of Current Medications in Medical Record, Elder Maltreatment Screen and Follow-Up Plan, Heart Failure, Screening for High Blood Pressure and F/U Documented - Current Medications Quality Measure: Measure #130: Documentation of Current Medications Documentation of Current Medications: <Current Medications Documented/Reviewed> [[id number]] - Blood Pressure Screening Quality Measure: Screening for High Blood Pressure and Follow-Up Documented Does Patient Have Any of the Following: No Blood Pressure Classification: Hypertensive Reading Systolic Measurement: 160 Diastolic Measurement: 76 Screening for High Blood Pressure: < First Hypertensive BP, F/U Documented > [ [id number]] First Hypertensive Follow-up Interventions: Follow-up with rescreen GT 1 day and LT 4 weeks., Referral to alternative/primary care provider. - Coronary Artery Disease Quality Measure: Measure #6: Coronary Artery Disease (CAD) Antiplatelet Therapy: <ASA or clopidogrel prescribed> [7889F] - Heart Failure (ANAHI/ARB Therapy) Quality Measure: Heart Failure Left Ventricular Systolic Function: Unknown ANAHI Inhibitor or ARB Therapy for LVSD: Not Eligible - Heart Failure (Beta-darcy Therapy) Quality Measure: Heart Failure Left Ventricular Systolic Function: Unknown Beta-Darcy Therapy for LVEF < 40%: Not Eligible - Advance Directives Quality Measure: Measure #47: Care Plan Advance Directives Established: No Advance Directives Information Provided To Patient: No Advance Directives on File: No Living Will: No Power of Senior Talent Acquisition Specialist: No Advance Care Planning: <Care Plan/Decision Maker Documented; Discussed & Documented> [7453F] - Elder Abuse Suspicion Index Screening: Elder Abuse Suspicion Index Screening Rely on people for bathing, dressing, shopping, banking, etc: No Prevented from getting food, clothes, medication, etc: No Made to feel shamed or threatened by someone: No Forced to sign papers or use money against will: No Feel afraid, touched in ways not wanted or hurt physically: No Poor eye contact, withdrawn, malnourished, cuts or bruises: No Screening Result: Negative result EASI Reference Information: Gen SCHNEIDER, Cj Massey, Saray Leal, Lore Rachel.Development and validation of a tool to assist physicians identification of elder abuse: The Elder Abuse Suspicion Index (EASI ). Journal of Elder Abuse and Neglect, 2008; 20 (3): 276-300. - Elder Maltreatment Screen Quality Measures: Elder Maltreatment Screen and Follow-Up Plan Elder Maltreatment Screen: <Negative, No Follow-Up Plan Required> [G8734]
== END 2018-03-17 13:25 | disposition home or self-care (01) ==
LOC: ER 15:42 → MEDSURG 19:35 → INTOOBSV 19:35
PROVIDERS: ADMIT Internal Medicine; ATTEND Internal Medicine
DX: I26.99 Other pulmonary embolism without acute cor pulmonale (principal); I25.118 Atherosclerotic heart disease of native coronary artery with other forms of angina pectoris; I51.7 Cardiomegaly; K44.9 Diaphragmatic hernia without obstruction or gangrene; G62.9 Polyneuropathy, unspecified; E03.9 Hypothyroidism, unspecified; I25.2 Old myocardial infarction; I50.9 Heart failure, unspecified; M06.9 Rheumatoid arthritis, unspecified; Z95.5 Presence of coronary angioplasty implant and graft; Z86.73 Personal history of transient ischemic attack (TIA), and cerebral infarction without residual deficits; Z86.711 Personal history of pulmonary embolism; Z87.891 Personal history of nicotine dependence
CPT/HCPCS: 71045; 71275; 80048; 80053; 84484; 85025; 85379; 85730; 99223; 99285; J1650

== ENCOUNTER 2018-08-28 17:28 | Emergency (ER) | payer MEDICARE ==
[2018-08-28] MEDS ORDERED: SODIUM CHLORIDE 0.9% 500 ML IV ONE (18:01)
[2018-08-28] MEDS ORDERED: ACETAMINOPHEN 1,000 MG/100 ML BTL IVPB ONE (18:01)
--- NOTE | 2018-08-28 18:07 | Emergency Department Record ---
History of Present Illness - General Chief Complaint: Pain Stated Complaint: RIB PAIN Time Seen by Provider: 08/28/18 17:56 Source: Patient Mode of Arrival: Ambulatory - History of Present Illness Initial Comments: 83 yo female presents with LUQ and Left lower rib pain. She fell around 1:30pm at home landing on the left side. She reports she is on Xarelto. No head or neck pain or injury. No LOC. She has pain on palpation of the left side and ribs. She reports it hurts to breath. No extremity complaints. No syncope. No other recent illness or injury. MD Complaint: Fall -: Hour(s) (4) Fall From: From height (distance), Standing When Fall Occurred: 4-6 hours [employer] Fall Witnessed: No Place Fall Occurred: Home Loss of Consciousness: None Prolonged Down Time?: No Symptoms Prior to Fall: None Location: Chest, Abdomen Severity scale (1-10): 7 Associated Symptoms: Chest pain (ribs) - [place] Coma Scale Eye Response: (4) Open spontaneously Motor Response: (6) Obeys commands Verbal Response: (5) Oriented Judi Total: 15 - Related Data Previous Rx's Medication Instructions Recorded Rivaroxaban [Xarelto] 20 mg PO DAILY 30 Days #30 tab 03/17/18 Allergies Allergy/AdvReac Type Severity Reaction Status Date / Time ciprofloxacin [From Cipro] Allergy Intermediate HIVES Verified 08/28/18 19:00 ciprofloxacin HCl Allergy Intermediate HIVES Verified 08/28/18 19:00 [From Cipro] sulfamethoxazole Allergy Mild ITCHING Verified 08/28/18 19:00 [From Bactrim] trimethoprim [From Bactrim] Allergy Mild ITCHING Verified 08/28/18 19:00 Travel Screening - Travel/Exposure Within Last 30 Days Have you traveled within the last 30 days?: No - Travel/Exposure Within Last Year Have you traveled outside the [place] in the last year?: No - Additonal Travel Details Have you been exposed to anyone with a communicable illness?: No - Travel Symptoms Symptom Screening: None Review of Systems Constitutional: Denies: Chills, Fever, Weakness Eyes: Denies: Eye discharge ENT: Denies: Congestion Respiratory: Denies: Cough, Dyspnea, Hemoptysis, Wheezes, Other Cardiovascular: Reports: As per HPI, Chest pain. Denies: Edema, Palpitations, Syncope Endocrine: Denies: Fatigue Gastrointestinal: Reports: As per HPI, Abdominal pain. Denies: Diarrhea, Nausea , Vomiting Genitourinary: Denies: Dysuria, Frequency Musculoskeletal: Reports: Myalgia. Denies: Arthralgia, Back pain, Joint swelling Skin: Denies: Bruising, Change in color, Rash Neurological: Denies: Headache, Numbness, Paresthesias, Weakness Psychiatric: Denies: Anxiety Hematological/Lymphatic: Denies: Easy bleeding, Easy bruising Past Medical History - SOCIAL HISTORY Smoking Status: Former smoker Alcohol Use: None Drug Use: None - RESPIRATORY Hx Respiratory Disorders: Yes Hx Bronchitis: Yes Hx Pneumonia: Yes Hx Pulmonary Embolism: Yes (2010) - CARDIOVASCULAR Hx Cardio Disorders: Yes Hx CHF: Yes Hx Heart Attack: Yes (2011) - NEURO Hx Neuro Disorders: Yes 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) - GI Hx GI Disorders: No - Hx Genitourinary Disorders: No - ENDOCRINE Hx Endocrine Disorders: No Hx Diabetes: No Hx Thyroid Disease: Yes - MUSCULOSKELETAL Hx Musculoskeletal Disorders: Yes Hx Arthritis: Yes (rheumatoid) Hx Back Injury: Yes (1997) - PSYCH Hx Psych Problems: No - HEMATOLOGY/ONCOLOGY Hx Hematology/Oncology Disorders: No Family Medical History Any Significant Family History?: Yes Hx Cancer: Brother/Sister, Grandparents *Cancer Comment: breast cancer Hx Dementia: Father Hx Diabetes: Children Hx Heart Disease: Mother, Brother/Sister *Heart Comment: mi Physical Exam - General General Appearance: Alert, Oriented x3, Cooperative, No acute distress Limitations: No limitations - Head Head exam: Atraumatic, Normal inspection - Eye Eye exam: Normal appearance. negative: Conjunctival injection, Scleral icterus - ENT ENT exam: Normal exam Ear exam: Normal external inspection Nasal Exam: Normal inspection Mouth exam: Normal external inspection - Neck Neck exam: Normal inspection - Respiratory Respiratory exam: Normal lung sounds bilaterally, Chest wall tenderness. negative: Accessory muscle use, Decreased breath sounds, Prolonged expiratory, Respiratory distress, Rhonchi, Stridor, Wheezes - Cardiovascular Cardiovascular Exam: Regular rate, Normal rhythm, Normal heart sounds Peripheral Pulses: 2+: Radial (R), Radial (L) - GI/Abdominal GI/Abdominal exam: Soft, Tenderness. negative: Guarding, Rebound - Rectal Rectal exam: Deferred - exam: Deferred - Extremities Extremities exam: Normal inspection. negative: Tenderness Image of Full Body: 1 - tenderness left lower ribs, LUQ around to the left flank - Back Back exam: Reports: Normal inspection, CVA tenderness (L) - Neurological Neurological exam: Alert, Normal gait, Oriented X3 - Psychiatric Psychiatric exam: Normal affect, Normal mood - Skin Skin exam: Dry, Intact, Normal color, Warm Course Vital Signs 08/28/18 17:52 Temperature 97.9 F Pulse Rate 77 Respiratory 16 Rate Blood Pressure 120/79 Pulse Ox 96 - Reevaluation(s) Reevaluation #1: Trauma activation given she is on Xarelto 08/28/18 18:06 08/28/18 19:02 The labs were reviewed. No acute changes on the CBC or BMP Waiting for CT scans 08/28/18 19:57 Radiology reads pending 08/28/18 20:[address] scans of the chest and abdomen are negative for acute process. NO fractures, injuries, or acute new problems. Chronic large HH. Medical Decision Making - Lab Data Result diagrams: 08/28/18 18:10 08/28/18 18:10 Disposition Disposition: Discharge Clinical Impression: Contusion of rib on left side Disposition: Home, Self-Care Condition: (1) Good Instructions: Rib Contusion (ED) Additional Instructions: Call your doctor first of the week for a recheck Return if you have any worsening symptoms, new symptoms, or uncontrolled pain Call your doctor for a recheck first of the week Forms: Patient Portal Access Time of Disposition: 20:48 Quality - Quality Measures Quality Measures: N/A - Blood Pressure Screening Does Patient Have Any of the Following: Active Dx of HTN Blood Pressure Classification: Pre-Hypertensive BP Reading Systolic Measurement: 120 Diastolic Measurement: 79 Screening for High Blood Pressure: Patient Exclusion, Hx of HTN [G9744]
[2018-08-28 18:23] LABS: BASO % 0.9 % (0-6); EOS % 2.2 % (0-6); GRAN % 58.6 % (47-80); HEMATOCRIT 44.7 % (35.0-47.0); HEMOGLOBIN 14.8 gm/dl (11.6-16.0); LYMPH % 29.6 % (16-45); MEAN CELL VOLUME 94.1 fl (81-97); MEAN CORPUSCULAR HEMOGLOBIN 31.2 pg (27-33); MEAN CORPUSCULAR HGB CONC 33.1 g/dl (32-36); MEAN PLATELET VOLUME 10.2 fl (7.4-10.4); MONO % 8.7 % (0-9); PLATELET COUNT 254 K/uL (130-400); RED BLOOD COUNT 4.75 M/uL (3.80-5.40); RED CELL DISTRIBUTION WIDTH 12.7 % (11.5-14.5); WHITE BLOOD COUNT W/O DIFF 8.5 K/uL (4.2-12.2)
[2018-08-28 18:33] LABS: BLOOD UREA NITROGEN 15 mg/dL (8-23); CREATININE 0.5 mg/dL (0.5-0.9); EST GLOMERULAR FILTRATION RATE > 60 mL/min; INR 1.1; PARTIAL THROMBOPLASTIN TIME 29.5 SECONDS (24.5-39.1); PROTHROMBIN TIME (PATIENT) 11.5 SECONDS (9.5-12.1)
[2018-08-28 18:37] LABS: GLUCOSE,RANDOM 122 mg/dL (74-109)
--- NOTE | 2018-08-30 20:52 | CT SCAN REPORT ---
EXAM: CT SCAN ABDOMEN/PELVIS W CONTRAST HISTORY: FELL IN THE GARAGE. PAIN ON THE LEFT SIDE OF THE BODY. TECHNIQUE: CT of the abdomen and pelvis performed following intravenous contrast administration. 100 mL of Omnipaque-300 contrast is used for this examination. COMPARISON: Prior MRI of the lumbar spine 11/25/2004. FINDINGS: There is a large hiatal hernia present. The majority of the stomach is within the thorax. Ther are several small hepatic cysts. Liver otherwise unremarkable. Spleen unremarkable. No pancreatic mass. The distal pancreatic body and tail are located within the lower thorax. No adrenal mass. The gallbladder is surgically absent. Mild dilatation of the bile ducts is likely physiologic related to the prior cholecystectomy. There are atherosclerotic changes in the abdominal aorta with no aneurysm. No periaortic mass or adenopathy. There are no dilated bowel loops. There is no pelvic mass, abscess, or adenopathy. There is no free air or free fluid identified. The lower ribs are unremarkable with no obvious or displaced rib fracture. No pelvic fracture identified. There is an old moderate compression fracture of T12. No destructive or erosive change seen. IMPRESSION: 1. NO ACUTE ABDOMINAL OR PELVIC PROCESS IDENTIFIED. 2. THERE IS A LARGE HIATAL HERNIA WITH AN INTRATHORACIC STOMACH. A PORTION OF THE PANCREAS IS ALSO LOCATED WITHIN THE THORAX. 3. THERE ARE HEPATIC CYSTS. 4. PRIOR CHOLECYSTECTOMY WITH PHYSIOLOGIC DILATATION OF THE COMMON BILE DUCT. 5. NOT MENTIONED ABOVE, THERE IS A LEFT RENAL CYST. NO RENAL MASS OR HYDRONEPHROSIS. 6. OLD COMPRESSION FRACTURE OF T12 WITH NO ACUTE FRACTURE IDENTIFIED. 7. SEE ABOVE FOR FULL DISCUSSION. JOB NUMBER: [id number] MTDD
--- NOTE | 2018-08-30 20:57 | CT SCAN REPORT ---
EXAM: CT SCAN CHEST W CONTRAST HISTORY: FALL. LEFT-SIDED PAIN. TECHNIQUE: CT of the thorax is performed following intravenous contrast administration. 100 mL of Omnipaque-300 contrast is used for this examination. COMPARISON: Chest CT 03/16/2018. FINDINGS: No mediastinal mass or hematoma. No mediastinal or hilar mass or adenopathy. There is a large hiatal hernia with the entire stomach up in the thorax. A portion of the pancreas is also located in the lower thorax. There are coronary artery calcifications. There is no pleural or pericardial effusion. There is no pneumothorax. No lung mass or nodule identified. There is an old moderate compression fracture of T12. No acute vertebral fracture seen. No obvious or displaced rib fracture identified. IMPRESSION: 1. NO ACUTE THORACIC PROCESS SEEN. 2. LARGE HIATAL HERNIA WITH AN INTRATHORACIC STOMACH. SOME OF THE PANCREAS IS ALSO INCLUDED IN THE HIATAL HERNIA. 3. THERE ARE CORONARY ARTERY CALCIFICATIONS. 4. OLD MODERATE COMPRESSION FRACTURE OF T12. NO ACUTE FRACTURE SEEN. JOB NUMBER: [id number] [facility]
== END 2018-08-28 21:12 | disposition home or self-care (01) ==
LOC: ER 17:28
DX: S20.212A Contusion of left front wall of thorax, initial encounter (principal); R10.11 Right upper quadrant pain; W19.XXXA Unspecified fall, initial encounter; Y92.008 Other place in unspecified non-institutional (private) residence as the place of occurrence of the external cause; I10 Essential (primary) hypertension; I25.2 Old myocardial infarction; I50.9 Heart failure, unspecified; Z79.01 Long term (current) use of anticoagulants; Z87.891 Personal history of nicotine dependence
CPT/HCPCS: 99284 ×2; 96374; 85025; 85730; 85610; 80048; 71260; 74177; 94010; G0480; Q9967; 80320

== ENCOUNTER 2019-02-10 18:31 | Observation (INO) | payer MEDICARE ==
[2019-02-10] MEDS ORDERED: ASPIRIN 81 MG CHEWABLE TABLET PO ONE (18:44)
[2019-02-10] MEDS ORDERED: NITROGLYCERIN 0.4MG SL TABLET #25 BTL SL PRN (18:44)
--- NOTE | 2019-02-10 18:48 | Emergency Department Record ---
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 - Related Data Previous Rx's Medication Instructions Recorded Rivaroxaban [Xarelto] 20 mg PO DAILY 30 Days #30 tab 03/17/18 Allergies Allergy/AdvReac Type Severity Reaction Status Date / Time ciprofloxacin [From Cipro] Allergy Intermediate HIVES Unverified 01/27/19 15:25 ciprofloxacin HCl Allergy Intermediate HIVES Unverified 01/27/19 15:25 [From Cipro] sulfamethoxazole Allergy Mild ITCHING Unverified 01/27/19 15:25 [From Bactrim] trimethoprim [From Bactrim] Allergy Mild ITCHING Unverified 01/27/19 15:25 Review of Systems Reviewed: No additional complaints except as noted below Constitutional: Reports: As per HPI. Denies: Chills, Fever, Malaise, Night sweats, Weakness, Weight change Eyes: Reports: As per HPI. Denies: Eye discharge, Eye pain, Photophobia, Vision change ENT: Reports: As per HPI. Denies: Congestion, Dental pain, Ear pain, Epistaxis, Hearing loss, Throat pain Respiratory: Reports: As per HPI. Denies: Cough, Dyspnea, Hemoptysis, Stridor, Wheezes Cardiovascular: Reports: As per HPI, Chest pain. Denies: Arrhythmia, Dyspnea on exertion, Edema, Murmurs, Orthopnea, Palpitations, Paroxysmal nocturnal dyspnea, Rheumatic Fever, Syncope Endocrine: Reports: As per HPI. Denies: Fatigue, Heat or cold intolerance, Polydipsia, Polyuria Gastrointestinal: Reports: As per HPI. Denies: Abdominal pain, Constipation, Diarrhea, Hematemesis, Hematochezia, Melena, Nausea, Vomiting Genitourinary: Reports: As per HPI. Denies: Abnormal menses, Discharge, Dyspareunia, Dysuria, Frequency, Hematuria, Incontinence, Retention, Urgency Musculoskeletal: Reports: As per HPI. Denies: Arthralgia, Back pain, Gout, Joint swelling, Myalgia, Neck pain Skin: Reports: As per HPI. Denies: Bruising, Change in color, Change in hair/nails, Lesions, Pruritus, Rash Neurological: Reports: As per HPI. Denies: Abnormal gait, Confusion, Headache, Numbness, Paresthesias, Seizure, Tingling, Tremors, Vertigo, Weakness Psychiatric: Reports: As per HPI. Denies: Anxiety, Auditory hallucinations, Depression, Homicidal thoughts, Suicidal thoughts, Visual hallucinations Hematological/Lymphatic: Reports: As per HPI. 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) - GI Hx GI Disorders: No - Hx Genitourinary Disorders: No - ENDOCRINE Hx Endocrine Disorders: No Hx Diabetes: No Hx Thyroid Disease: Yes - MUSCULOSKELETAL Hx Musculoskeletal Disorders: Yes Hx Arthritis: Yes (rheumatoid) Hx Back Injury: Yes (1997) - PSYCH Hx Psych Problems: No - HEMATOLOGY/ONCOLOGY Hx Hematology/Oncology Disorders: No Family Medical History Hx Cancer: Brother/Sister, Grandparents *Cancer Comment: breast cancer Hx Dementia: Father Hx Diabetes: Children Hx Heart Disease: Mother, Brother/Sister *Heart Comment: mi Physical Exam - General General Appearance: Alert, Oriented x3, Cooperative, No acute distress - Head Head exam: Normal inspection - Eye Eye exam: Normal appearance, PERRL Pupils: Normal accommodation - ENT ENT exam: Normal exam, Mucous membranes moist, Normal external ear exam, Normal orophraynx, TM's normal bilaterally Ear exam: Normal external inspection. negative: External canal tenderness Nasal Exam: Normal inspection. negative: Discharge, Sinus tenderness Mouth exam: Normal external inspection, Tongue normal Teeth exam: Normal inspection. negative: Dental caries Throat exam: Normal inspection. negative: Tonsillar erythema, Tonsillar exudate - Neck Neck exam: Normal inspection, Full ROM. negative: Tenderness - Respiratory Respiratory exam: Normal lung sounds bilaterally. negative: Respiratory distress - Cardiovascular Cardiovascular Exam: Regular rate, Normal rhythm, Normal heart sounds - GI/Abdominal GI/Abdominal exam: Soft, Normal bowel sounds. negative: Tenderness - Rectal Rectal exam: Deferred - exam: Deferred - Extremities Extremities exam: Normal inspection, Full ROM, Normal capillary refill. negative: Tenderness - Back Back exam: Reports: Normal inspection, Full ROM. Denies: Muscle spasm, Rash noted, Tenderness - Neurological Neurological exam: Alert, Normal gait, Oriented X3, Reflexes normal - Psychiatric Psychiatric exam: Normal affect, Normal mood - Skin Skin exam: Dry, Intact, Normal color, Warm Course - Reevaluation(s) Reevaluation #1: 02/10/19 18:[address] Pak Disposition Clinical Impression: Chest pain Qualifiers: Chest pain type: unspecified Qualified Code(s): R07.9 - Chest pain, unspecified Quality - Quality Measures Quality Measures: N/A - Blood Pressure Screening Does Patient Have Any of the Following: No, Active Dx of HTN Systolic Measurement: ~ Screening for High Blood Pressure: Patient Exclusion, Hx of HTN [G9744]
[2019-02-10 18:53] LABS: ABSOLUTE NEUTROPHIL COUNT 3.72; BASO % 0.6 % (0-6); EOS % 3.2 % (0-6); GRAN % 59.5 % (47-80); HEMATOCRIT 37.5 % (35.0-47.0); LYMPH % 26.1 % (16-45); MEAN CELL VOLUME 93.5 fl (81-97); MEAN CORPUSCULAR HEMOGLOBIN 29.9 pg (27-33); MEAN PLATELET VOLUME 9.6 fl (7.4-10.4); MONO % 10.6 % (0-9); PLATELET COUNT 257 K/uL (130-400); RED BLOOD COUNT 4.01 M/uL (3.80-5.40); RED CELL DISTRIBUTION WIDTH 12.9 % (11.5-14.5); WHITE BLOOD COUNT W/O DIFF 6.3 K/uL (4.2-12.2)
--- NOTE | 2019-02-10 19:00 | Emergency Department Record ---
History of Present Illness - General Chief Complaint: Chest Pain Stated Complaint: CHEST PAIN Time Seen by Provider: 02/10/19 18:35 Source: Patient, RN notes reviewed Mode of Arrival: Ambulatory - History of Present Illness Initial Comments: pt has been having intermittent chest pain for a week. she is having no pain currently. today she put drops in her ear and it made her nauseous and clammy MD Complaint: Chest pain Onset/Timin -: Hour(s) Pain Location: Right chest Severity: Moderate Severity scale (1-10): 5 Quality: Tightness Improves With: Nitroglycerin Worsens With: Nothing Context: Recent illness Anginal Symptoms: Diaphoresis, Nausea Other Symptoms: Burping Treatments Prior to Arrival: Nitroglycerin Treatment Prior to Arrival Comment:: x1 - Related Data Previous Rx's Medication Instructions Recorded Rivaroxaban [Xarelto] 20 mg PO DAILY 30 Days #30 tab 03/17/18 Allergies Allergy/AdvReac Type Severity Reaction Status Date / Time ciprofloxacin [From Cipro] Allergy Intermediate HIVES Verified 02/10/19 18:55 ciprofloxacin HCl Allergy Intermediate HIVES Verified 02/10/19 18:55 [From Cipro] sulfamethoxazole Allergy Mild ITCHING Verified 02/10/19 18:55 [From Bactrim] trimethoprim [From Bactrim] Allergy Mild ITCHING Verified 02/10/19 18:55 Travel Screening - Travel/Exposure Within Last 30 Days Have you traveled within the last 30 days?: No - Travel Symptoms Symptom Screening: None Review of Systems Constitutional: Reports: As per HPI. Denies: Chills, Fever, Malaise, Night sweats, Weakness, Weight change Eyes: Reports: As per HPI. Denies: Eye discharge, Eye pain, Photophobia, Vision change ENT: Reports: As per HPI. Denies: Congestion, Dental pain, Ear pain, Epistaxis, Hearing loss, Throat pain Respiratory: Reports: As per HPI. Denies: Cough, Dyspnea, Hemoptysis, Stridor, Wheezes Cardiovascular: Reports: As per HPI, Chest pain. Denies: Arrhythmia, Dyspnea on exertion, Edema, Murmurs, Orthopnea, Palpitations, Paroxysmal nocturnal dyspnea, Rheumatic Fever, Syncope Endocrine: Reports: As per HPI. Denies: Fatigue, Heat or cold intolerance, Polydipsia, Polyuria Gastrointestinal: Reports: As per HPI. Denies: Abdominal pain, Constipation, Diarrhea, Hematemesis, Hematochezia, Melena, Nausea, Vomiting Genitourinary: Reports: As per HPI. Denies: Abnormal menses, Discharge, Dyspareunia, Dysuria, Frequency, Hematuria, Incontinence, Retention, Urgency Musculoskeletal: Reports: As per HPI. Denies: Arthralgia, Back pain, Gout, Joint swelling, Myalgia, Neck pain Skin: Reports: As per HPI. Denies: Bruising, Change in color, Change in hair/nails, Lesions, Pruritus, Rash Neurological: Reports: As per HPI. Denies: Abnormal gait, Confusion, Headache, Numbness, Paresthesias, Seizure, Tingling, Tremors, Vertigo, Weakness Psychiatric: Reports: As per HPI. Denies: Anxiety, Auditory hallucinations, Depression, Homicidal thoughts, Suicidal thoughts, Visual hallucinations Hematological/Lymphatic: Reports: As per HPI. 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) - GI Hx GI Disorders: No - Hx Genitourinary Disorders: No - ENDOCRINE Hx Endocrine Disorders: No Hx Diabetes: No Hx Thyroid Disease: Yes - MUSCULOSKELETAL Hx Musculoskeletal Disorders: Yes Hx Arthritis: Yes (rheumatoid) Hx Back Injury: Yes (1997) - PSYCH Hx Psych Problems: No - HEMATOLOGY/ONCOLOGY Hx Hematology/Oncology Disorders: No Family Medical History Hx Cancer: Brother/Sister, Grandparents *Cancer Comment: breast cancer Hx Dementia: Father Hx Diabetes: Children Hx Heart Disease: Mother, Brother/Sister *Heart Comment: mi Physical Exam - General General Appearance: Alert, Oriented x3, Cooperative, No acute distress - Head Head exam: Normal inspection - Eye Eye exam: Normal appearance, PERRL Pupils: Normal accommodation - ENT ENT exam: Normal exam, Mucous membranes moist, Normal external ear exam, Normal orophraynx Ear exam: Normal external inspection. negative: External canal tenderness Nasal Exam: Normal inspection. negative: Discharge, Sinus tenderness Mouth exam: Normal external inspection, Tongue normal Teeth exam: Normal inspection. negative: Dental caries Throat exam: Normal inspection. negative: Tonsillar erythema, Tonsillar exudate - Neck Neck exam: Normal inspection, Full ROM. negative: Tenderness - Respiratory Respiratory exam: Normal lung sounds bilaterally. negative: Respiratory distress - Cardiovascular Cardiovascular Exam: Regular rate, Normal rhythm, Normal heart sounds - GI/Abdominal GI/Abdominal exam: Soft, Normal bowel sounds. negative: Tenderness - Rectal Rectal exam: Deferred - exam: Deferred - Extremities Extremities exam: Normal inspection, Full ROM, Normal capillary refill. negative: Tenderness - Back Back exam: Reports: Normal inspection, Full ROM. Denies: Muscle spasm, Rash noted, Tenderness - Neurological Neurological exam: Alert, CN II-XII intact, Normal gait, Oriented X3 - Psychiatric Psychiatric exam: Normal affect, Normal mood - Skin Skin exam: Dry, Intact, Normal color, Warm Course Vital Signs 02/10/19 18:36 Temperature 97.6 F Pulse Rate 82 Respiratory 16 Rate Blood Pressure 147/76 Pulse Ox 95 - Reevaluation(s) Reevaluation #1: 02/10/19 20:54 pt had no further cp Medical Decision Making - Lab Data Result diagrams: 02/10/19 18:49 02/10/19 18:49 Lab Results 02/10/19 Range/Units 18:49 WBC 6.3 (4.2-12.2) K/uL RBC 4.01 (3.80-5.40) M/uL Hgb 12.0 (11.6-16.0) gm/dl Hct 37.5 (35.0-47.0) % MCV 93.5 (81-97) fl MCH 29.9 (27-33) pg MCHC 32.0 (32-36) g/dl RDW 12.9 (11.5-14.5) % Plt Count 257 (130-400) K/uL MPV 9.6 (7.4-10.4) fl Gran % 59.5 (47-80) % Lymphocytes % 26.1 (16-45) % Monocytes % 10.6 H (0-9) % Eosinophils % 3.2 (0-6) % Basophils % 0.6 (0-6) % Absolute Neutrophils 3.72 Disposition Disposition: Admit Clinical Impression: Chest pain Qualifiers: Chest pain type: unspecified Qualified Code(s): R07.9 - Chest pain, unspecified Disposition: Still a Patient at [facility] Decision to Admit: Admit from ER Decision to Admit Date: 02/10/19 Decision to Admit Time: 20:57 Forms: Patient Portal Access Quality - Quality Measures Quality Measures: N/A - Blood Pressure Screening Does Patient Have Any of the Following: Active Dx of HTN Blood Pressure Classification: Hypertensive Reading Systolic Measurement: 147 Diastolic Measurement: 76 Screening for High Blood Pressure: Patient Exclusion, Hx of HTN [G9744]
[2019-02-10 19:08] LABS: BLOOD UREA NITROGEN 16 mg/dL (8-23)
[2019-02-10 19:09] LABS: CREATININE 0.6 mg/dL (0.5-0.9); EST GLOMERULAR FILTRATION RATE > 60 mL/min; TOTAL PROTEIN 6.5 g/dL (6.6-8.7)
[2019-02-10 19:11] LABS: GLUCOSE,RANDOM 135 mg/dL (74-109)
[2019-02-10 19:14] LABS: ALB/GLOB RATIO 1.8 (1.1-1.8); ALBUMIN 4.2 g/dL (4.0-5.0); ALKALINE PHOSPHATASE 45 U/L (35-104); ALT/SGPT 10 U/L (<33); AST/SGOT 22 U/L (10.0-35.0); CREATINE PHOSPHOKINASE 132 U/L (26-192)
[2019-02-10 19:17] LABS: CKMB 5.4 ng/mL (<3.77)
[2019-02-10 19:24] LABS: THYROID STIMULATING HORMONE 2.47 uIU/mL (0.270-4.20)
[2019-02-10] MEDS ORDERED: ACETAMINOPHEN 500 MG TABLET PO ONE (20:43)
[2019-02-10] MEDS ORDERED: ACETAMINOPHEN 500 MG TABLET PO PRN (20:58)
[2019-02-10] MEDS: GABAPENTIN 300 MG CAPSULE PO SCH (22:13)
[2019-02-11] MEDS ORDERED: DIPHENHYDRAMINE HCL 25 MG CAPSULE PO PRN (00:03)
[2019-02-11 03:27] LABS: CKMB 4.4 ng/mL (<3.77)
[2019-02-11] MEDS ORDERED: RIVAROXABAN 20 MG TABLET PO SCH (10:00)
[2019-02-11] MEDS ORDERED: LORATADINE 10 MG TABLET PO SCH (10:00)
[2019-02-11] MEDS ORDERED: HYDROCHLOROTHIAZIDE 12.5 MG CAPSULE PO SCH (10:00)
[2019-02-11] MEDS ORDERED: LISINOPRIL 10 MG TABLET PO SCH (10:00)
[2019-02-11] MEDS ORDERED: LEVOTHYROXINE SODIUM 50 MCG TABLET PO SCH (10:00)
[2019-02-11] MEDS ORDERED: ASPIRIN 325 MG TAB ENTERIC-COATED PO SCH (10:00)
[2019-02-11] MEDS: GABAPENTIN 300 MG CAPSULE PO SCH (10:08)
--- NOTE | 2019-02-11 10:19 | History & Physical ---
History of Present Illness - Date of Service Date of Service for History & Physical: 02/11/19 - History of Present Illness Admitting Diagnosis: chest pain History of Present Illness: 83 year old female patient presented for evaluation of chest pain and di aphoresis that began earlier in the day while carrying groceries into the house. Patient reported taking 1 SL nitro [employer] with relief of symptoms. States she also had intermittent chest pains 1 week ago and took 2 SL nitro at that time with relief of symptoms. 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 Patient's past medical history includes [place] x 2 with stent placement, PE (on xarelto), TIA, previous smoker, neuropathy, rheumatoid arthritis, hypothyroidism, and chronic back pain. PCP: Amelia Arzate NP ED Course: Vitals: Temp 97.6F, HR 82, RR 16, BP 147/76, Pulse ox 95% CBC, CMP WNL D-dimer 0.56 Trop <0.01, CKMB 5.4 EKG: LBBB rate 82 CTA Chest: negative for acute chest process, large hiatal hernia as previously seen 02/11/19: Patient A&O x 4, resting comfortably in bed. Patient denies any chest pain at this time. 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 Travel Screening - Travel/Exposure Within Last 30 Days Have you traveled within the last 30 days?: No - Travel/Exposure Within Last Year Have you traveled outside the [place] in the last year?: No - Additonal Travel Details Have you been exposed to anyone with a communicable illness?: No - Travel Symptoms Symptom Screening: Headache Review of Systems Reviewed: No additional complaints except as noted below Constitutional: Reports: As per HPI, Other (dipahoresis). Denies: Chills, Fever, Malaise, Night sweats, Weakness, Weight change Eyes: Reports: As per HPI. Denies: Eye discharge, Eye pain, Photophobia, Vision change ENT: Reports: As per HPI. Denies: Congestion, Dental pain, Ear pain, Epistaxis, Hearing loss, Throat pain Respiratory: Reports: As per HPI. Denies: Cough, Dyspnea, Hemoptysis, Stridor, Wheezes Cardiovascular: Reports: As per HPI, Chest pain. Denies: Arrhythmia, Dyspnea on exertion, Edema, Murmurs, Orthopnea, Palpitations, Paroxysmal nocturnal dyspnea, Rheumatic Fever, Syncope Endocrine: Reports: As per HPI. Denies: Fatigue, Heat or cold intolerance, Polydipsia, Polyuria Gastrointestinal: Reports: As per HPI. Denies: Abdominal pain, Constipation, Diarrhea, Hematemesis, Hematochezia, Melena, Nausea, Vomiting Genitourinary: Reports: As per HPI. Denies: Abnormal menses, Discharge, Dyspareunia, Dysuria, Frequency, Hematuria, Incontinence, Retention, Urgency Musculoskeletal: Reports: As per HPI. Denies: Arthralgia, Back pain, Gout, Joint swelling, Myalgia, Neck pain Skin: Reports: As per HPI. Denies: Bruising, Change in color, Change in hair/nails, Lesions, Pruritus, Rash Neurological: Reports: As per HPI. Denies: Abnormal gait, Confusion, Headache, Numbness, Paresthesias, Seizure, Tingling, Tremors, Vertigo, Weakness Psychiatric: Reports: As per HPI. Denies: Anxiety, Auditory hallucinations, Depression, Homicidal thoughts, Suicidal thoughts, Visual hallucinations Hematological/Lymphatic: Reports: As per HPI. 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) - GI Hx GI Disorders: No - Hx Genitourinary Disorders: No - ENDOCRINE Hx Endocrine Disorders: No Hx Diabetes: No Hx Thyroid Disease: Yes - MUSCULOSKELETAL Hx Musculoskeletal Disorders: Yes Hx Arthritis: Yes (rheumatoid) Hx Back Injury: Yes (1997) - PSYCH Hx Psych Problems: No - HEMATOLOGY/ONCOLOGY Hx Hematology/Oncology Disorders: No Family Medical History Any Significant Family History?: Yes Hx Cancer: Brother/Sister, Grandparents *Cancer Comment: breast cancer Hx Dementia: Father Hx Diabetes: Children Hx Heart Disease: Mother, Brother/Sister *Heart Comment: mi H&P Meds/Allergies - Allergies Allergies: Allergies Allergy/AdvReac Type Severity Reaction Status Date / Time ciprofloxacin [From Cipro] Allergy Intermediate HIVES Verified 02/10/19 18:55 ciprofloxacin HCl Allergy Intermediate HIVES Verified 02/10/19 18:55 [From Cipro] sulfamethoxazole Allergy Mild ITCHING Verified 02/10/19 18:55 [From Bactrim] trimethoprim [From Bactrim] Allergy Mild ITCHING Verified 02/10/19 18:55 - Home Medications Previous Rx's Medication Instructions Recorded Rivaroxaban [Xarelto] 20 mg PO DAILY 30 Days #30 tab 03/17/18 - Active Medications Active Medications: Current Medications Acetaminophen (Tylenol 500mg Tab) 1,000 mg PO Q6H PRN PRN Reason: PAIN - MILD(1-4)/FEVER Last Admin: 02/11/19 03:56 Dose: 1,000 mg Documented by: Aspirin (Ecotrin (Ec)) 325 mg PO DAILY [facility] Last Admin: 02/11/19 10:09 Dose: 325 mg Documented by: Diphenhydramine HCl (Benadryl Capsule) 25 mg PO Q6H PRN PRN Reason: insomnia Last Admin: 02/11/19 00:07 Dose: 25 mg Documented by: Gabapentin (Neurontin) 300 mg PO BID [facility] Last Admin: 02/11/19 10:08 Dose: 300 mg Documented by: Hydrochlorothiazide (Hctz 12.5mg) 12.5 mg PO DAILY [facility] Last Admin: 02/11/19 10:08 Dose: 12.5 mg Documented by: Levothyroxine Sodium (Synthroid) 50 mcg PO DAILY [facility] Last Admin: 02/11/19 10:08 Dose: 50 mcg Documented by: Lisinopril (Zestril) 10 mg PO DAILY [facility] Last Admin: 02/11/19 10:08 Dose: 10 mg Documented by: Nitroglycerin (Nitrostat 0.4mg) 0.4 mg SL Q5MIN PRN PRN Reason: CHEST PAIN Rivaroxaban (Xarelto) 20 mg PO DAILY [facility] Last Admin: 02/11/19 10:08 Dose: 20 mg Documented by: Physical Exam - Vital Signs Vital Signs: Vital Signs - Last 24 Hrs Temp Pulse Pulse Pulse Resp BP BP 02/11/19 07:59 97.5 F L 81 16 108/49 02/11/19 03:56 97 F L 72 18 116/58 02/11/19 00:00 72 20 120/67 02/10/19 23:51 76 20 02/10/19 21:45 84 20 125/66 02/10/19 20:12 90 137/73 02/10/19 19:26 76 134/70 02/10/19 18:36 97.6 F 82 16 147/76 Pulse Ox 02/11/19 07:59 92 L 02/11/19 03:56 94 L 02/11/19 00:00 96 02/10/19 23:51 02/10/19 21:45 94 L 02/10/19 20:12 94 L 02/10/19 19:26 94 L 02/10/19 18:36 95 - General General Appearance: Alert, Oriented x3, Cooperative, No acute distress - Head Head exam: Normal inspection - Eye Eye exam: Normal appearance, PERRL Pupils: Normal accommodation - ENT ENT exam: Normal exam, Mucous membranes moist, Normal external ear exam Ear exam: Normal external inspection. negative: External canal tenderness Nasal Exam: Normal inspection. negative: Discharge, Sinus tenderness Mouth exam: Normal external inspection Teeth exam: negative: Dental caries Throat exam: negative: Tonsillar erythema, Tonsillar exudate - Neck Neck exam: Normal inspection, Full ROM. negative: Tenderness - Respiratory Respiratory exam: Normal lung sounds bilaterally. negative: Respiratory distress - Cardiovascular Cardiovascular Exam: Regular rate, Normal rhythm, Normal heart sounds Peripheral Pulses: 2+: Radial (R), Radial (L), Dorsalis Pedis (R), Dorsalis Pedis (L) - GI/Abdominal GI/Abdominal exam: Soft, Normal bowel sounds. negative: Tenderness - Rectal Rectal exam: Deferred - exam: Deferred - Extremities Extremities exam: Normal inspection, Full ROM, Normal capillary refill. negative: Tenderness - Back Back exam: Reports: Normal inspection, Full ROM. Denies: Muscle spasm, Rash noted, Tenderness - Neurological Neurological exam: Alert, CN II-XII intact, Normal gait, Oriented X3 - Psychiatric Psychiatric exam: Normal affect, Normal mood - Skin Skin exam: Dry, Intact, Normal color, Warm Results - Labs Result Diagrams: 02/10/19 18:49 02/10/19 18:49 Labs Last 24 Hours: Laboratory Results - last 24 hr 02/10/19 02/10/19 02/10/19 18:49 18:49 18:49 WBC 6.3 RBC 4.01 Hgb 12.0 Hct 37.5 MCV 93.5 MCH 29.9 MCHC 32.0 RDW 12.9 Plt Count 257 MPV 9.6 Gran % 59.5 Lymphocytes % 26.1 Monocytes % 10.6 H Eosinophils % 3.2 Basophils % 0.6 Absolute Neutrophils 3.72 D-Dimer 0.56 Sodium 140 Potassium 3.3 L Chloride 102 Carbon Dioxide 26.0 Anion Gap 12.0 BUN 16 Creatinine 0.6 Estimated GFR > 60 Random Glucose 135 H Calcium 9.4 Total Bilirubin 0.30 AST 22 ALT 10 Alkaline Phosphatase 45 Creatine Kinase 132 CK-MB (CK-2) 5.4 H Troponin T < 0.010 NT-Pro-B Natriuret Pep 131.80 Total Protein 6.5 L Albumin 4.2 Globulin 2.3 Albumin/Globulin Ratio 1.8 TSH 2.47 02/11/19 02/11/19 03:00 03:05 WBC RBC Hgb Hct MCV MCH MCHC RDW Plt Count MPV Gran % Lymphocytes % Monocytes % Eosinophils % Basophils % Absolute Neutrophils D-Dimer Sodium Potassium Chloride Carbon Dioxide Anion Gap BUN Creatinine Estimated GFR Random Glucose Calcium Total Bilirubin AST ALT Alkaline Phosphatase Creatine Kinase CK-MB (CK-2) Cancelled 4.4 H Troponin T < 0.010 NT-Pro-B Natriuret Pep Total Protein Albumin Globulin Albumin/Globulin Ratio TSH - Imaging and Cardiology CT scan - chest Status: Report reviewed VTE H&P Assessment - Risk for VTE Risk for VTE: Yes Risk Level: Moderate Risk Assessment Date: 02/11/19 Risk Assessment Time: 10:45 VTE Orders Placed or Will Be Placed: No VTE Reason for No Prophylaxis: Contraindicated (continue home dose of xarelto) Plan - Detailed Diagnosis and Plan (1) Chest pain Current Visit: Yes Status: Acute Qualifiers: Chest pain type: unspecified Qualified Code(s): R07.9 - Chest pain, unspecified Base Code: R07.9 - CHEST PAIN, UNSPECIFIED Comment: 02/11/19: -Chest pain with diaphoresis yesterday, symptoms improved with SL nitro -EKG in ED: LBBB, rate 82 -Trop <0.01, CKMB 5.4 -CTA chest: negative for acute process, large hiatal hernia as previously noted -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
[2019-02-11] MEDS ORDERED: CALCIUM CARBONATE 500 MG TAB.CHEW PO PRN (12:54)
--- NOTE | 2019-02-11 15:09 | Discharge Summary ---
Providers Discharge Summary Date: 02/11/19 Date of admission: 02/10/19 21:39 Expected Date of Discharge: 02/11/19 Attending physician: LOUIS LUTHER Primary care physician: Amelia Arzate N.P. Consults: Consult Orders 02/10/19 21:05 Consult NOW Consulting Provider: Brendan Don Physician Instructions: Reason For Exam: cp w cad 02/11/19 10:10 Consult - Cardiology NOW Consulting Provider: Brendan Don Physician Instructions: Reason For Exam: chest pain Does pt have current railway signal technician?: Lázaro Physical Exam - Vital Signs Vital Signs: Vital Signs - Last 24 Hrs Temp Pulse Pulse Pulse Resp BP BP 02/11/19 11:30 97.5 F L 80 16 115/55 02/11/19 09:00 16 02/11/19 07:59 97.5 F L 81 16 108/49 02/11/19 03:56 97 F L 72 18 116/58 02/11/19 00:00 72 20 120/67 02/10/19 23:51 76 20 02/10/19 21:45 84 20 125/66 02/10/19 20:12 90 137/73 02/10/19 19:26 76 134/70 02/10/19 18:36 97.6 F 82 16 147/76 Pulse Ox 02/11/19 11:30 93 L 02/11/19 09:00 02/11/19 07:59 92 L 02/11/19 03:56 94 L 02/11/19 00:00 96 02/10/19 23:51 02/10/19 21:45 94 L 02/10/19 20:12 94 L 02/10/19 19:26 94 L 02/10/19 18:36 95 - General General Appearance: Alert, Oriented x3, Cooperative, No acute distress - Head Head exam: Normal inspection - Eye Eye exam: Normal appearance, PERRL Pupils: Normal accommodation - ENT ENT exam: Normal exam, Mucous membranes moist, Normal external ear exam Ear exam: Normal external inspection. negative: External canal tenderness Nasal Exam: Normal inspection. negative: Discharge, Sinus tenderness Mouth exam: Normal external inspection Teeth exam: negative: Dental caries Throat exam: negative: Tonsillar erythema, Tonsillar exudate - Neck Neck exam: Normal inspection, Full ROM. negative: Tenderness - Respiratory Respiratory exam: Normal lung sounds bilaterally. negative: Respiratory distress - Cardiovascular Cardiovascular Exam: Regular rate, Normal rhythm, Normal heart sounds Peripheral Pulses: 2+: Radial (R), Radial (L), Dorsalis Pedis (R), Dorsalis Pedis (L) - GI/Abdominal GI/Abdominal exam: Soft, Normal bowel sounds. negative: Tenderness - Rectal Rectal exam: Deferred - exam: Deferred - Extremities Extremities exam: Normal inspection, Full ROM, Normal capillary refill. negative: Tenderness - Back Back exam: Reports: Normal inspection, Full ROM. Denies: Muscle spasm, Rash noted, Tenderness - Neurological Neurological exam: Alert, CN II-XII intact, Normal gait, Oriented X3 - Psychiatric Psychiatric exam: Normal affect, Normal mood - Skin Skin exam: Dry, Intact, Normal color, Warm Hospitalization - Hospitalization Admission Diagnosis: chest pain - Problem List/Discharge Diagnosis (1) Chest pain Current Visit: Yes Status: Acute Discharge Diagnosis: Chest pain type: unspecified Qualified Code(s): R07.9 - Chest pain, unspecified Base Code: R07.9 - CHEST PAIN, UNSPECIFIED Comment: 02/11/19: -Chest pain with diaphoresis yesterday, symptoms improved with SL nitro -EKG in ED: LBBB, rate 82 -Trop <0.01 x 3, CKMB 5.4, 4.4, 4.2 -CTA chest: negative for acute process, large hiatal hernia as previously noted -surveillance system monitor -Cardiology consult: okay for discharge, to follow-up outpatient (2) DVT prophylaxis Current Visit: No Status: Acute Base Code: [id number] - Comment: 02/11/19: -Moderate risk due to age and hospitalization -Continue home dose of Xarelto 20mg daily -Encourage ambulation within the room (3) Full code status Current Visit: No Status: Acute Base Code: Z78.9 - OTHER SPECIFIED HEALTH STATUS Comment: 02/11/19: -Patient is a full code this admission - Hospitalization Course Disposition: Home, Self-Care Hospital Course: 83 year old female patient presented for evaluation of chest pain and diaphoresis that began earlier in the day while carrying groceries into the house. Patient reported taking 1 SL nitro [facility] ASS[employer] with relief of symptoms. States she also had intermittent chest pains 1 week ago and took 2 SL nitro at that time with relief of symptoms. 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 Patton. Patient's past medical history includes NM x 2 with stent placement, PE (on x arelto), TIA, previous smoker, neuropathy, rheumatoid arthritis, hypothyroidism, and chronic back pain. PCP: Amelia Arzate NP ED Course: Vitals: Temp 97.6F, HR 82, RR 16, BP 147/76, Pulse ox 95% CBC, CMP WNL D-dimer 0.56 Trop <0.01, CKMB 5.4 EKG: LBBB rate 82 CTA Chest: negative for acute chest process, large hiatal hernia as previously seen 02/11/19: Patient A&O x 4, resting comfortably in bed. Patient denies any chest pain at this time. Serial trops, EKG daily, case monitor, cardiology consult pending. UPDATE: Patient continues to be pain free. Cardiac enzymes negative x 3. Cardiology consult, patient to follow-up outpatient for further evaluation. Procedures: Imaging and X-Rays 02/10/19 19:14 CHEST CTA w contrast [CTA] Stat Cardiology Procedures 02/10/19 18:44 EKG NOW 02/10/19 20:58 Hand Grinder .Continuous 02/10/19 21:00 EKG QDX2@0600 Abnormal Labs: Abnormal Lab Results 02/10/19 02/10/19 02/11/19 Range/Units 18:49 18:49 03:05 Monocytes % 10.6 H (0-9) % Potassium 3.3 L (3.4-4.5) mmol/L Random Glucose 135 H (74-109) mg/dL CK-MB (CK-2) 5.4 H 4.4 H (<3.77) ng/mL Total Protein 6.5 L (6.6-8.7) g/dL 02/11/19 Range/Units 11:21 Monocytes % (0-9) % Potassium (3.4-4.5) mmol/L Random Glucose (74-109) mg/dL CK-MB (CK-2) 4.2 H (<3.77) ng/mL Total Protein (6.6-8.7) g/dL Condition at Discharge: (2) Stable Discharge Medications - Discharge Medications Home Medications: Ambulatory Orders Aspirin [Aspir-Low] 81 mg PO DAILY tab. 12/19/15 [Last Taken 02/10/19] Cyanocobalamin (Vitamin B-12) [Vitamin B12] 1,200 mcg PO DAILY 03/27/17 [Last Taken 02/10/19] Nitroglycerin [Nitrostat] 0.4 mg SL Q5MIN PRN 03/27/17 [Last Taken 02/10/19] Multivitamin [Multi-Vitamin Daily] 1 each PO DAILY 03/17/18 [Last Taken 02/10/19] Rivaroxaban [Xarelto] 20 mg PO DAILY 30 Days #30 tab 03/17/18 [Last Taken 02/10/19] Gabapentin 300 mg PO BID cap 11/18/18 [Last Taken 02/10/19] Discharge Plan - Discharge Instructions Activity at Discharge: Resume Usual Activities As Tolerated Diet at Discharge: Regular Diet Additional Instructions: Please schedule hospital follow up visit with MAXWELL Cisneros for 1-2 weeks following hospital discharge. Follow up with Dr. Patton in one month. Quality Measures - Quality Measures Quality Measures: Advance Directives, Coronary Artery Disease: Antiplatelet Therapy, Documentation of Current Medications in Medical Record, Elder Maltreatment Screen and Follow-Up Plan, Heart Failure, Screening for High Blood Pressure and F/U Documented - Current Medications Quality Measure: Measure #130: Documentation of Current Medications Documentation of Current Medications: <Current Medications Documented/Reviewed> [G8427] - Blood Pressure Screening Quality Measure: Screening for High Blood Pressure and Follow-Up Documented Does Patient Have Any of the Following: Active Dx of HTN Blood Pressure Classification: Pre-Hypertensive BP Reading Systolic Measurement: 125 Diastolic Measurement: 66 Screening for High Blood Pressure: Patient Exclusion, Hx of HTN [G9744] - Coronary Artery Disease Quality Measure: Measure #6: Coronary Artery Disease (CAD) Antiplatelet Therapy: <ASA or clopidogrel prescribed> [4086F] - Heart Failure (ANAHI/ARB Therapy) Quality Measure: Heart Failure Left Ventricular Systolic Function: Unknown ANAHI Inhibitor or ARB Therapy for LVSD: Not Eligible - Heart Failure (Beta-darcy Therapy) Quality Measure: Heart Failure Left Ventricular Systolic Function: Unknown Beta-Darcy Therapy for LVEF < 40%: Not Eligible - Advance Directives Quality Measure: Measure #47: Care Plan Advance Directives Established: No Advance Directives Information Provided To Patient: Declined Advance Directives on File: No Living Will: No Power of Volunteer Services Director: Yes Power of Volunteer Services Director Name: JAMILA WARNER Advance Care Planning: <Care Plan/Decision Maker Documented; Discussed & Documented> [8893F] - Elder Abuse Suspicion Index Screening: Elder Abuse Suspicion Index Screening Rely on people for bathing, dressing, shopping, banking, etc: No Prevented from getting food, clothes, medication, etc: No Made to feel shamed or threatened by someone: No Forced to sign papers or use money against will: No Feel afraid, touched in ways not wanted or hurt physically: No Poor eye contact, withdrawn, malnourished, cuts or bruises: No Screening Result: Negative result EASI Reference Information: Gen SCHNEIDER, Cj C, Saray D, Lore Rachel.Development and validation of a tool to assist physicians identification of elder abuse: The Elder Abuse Suspicion Index (EASI ). Journal of Elder Abuse and Neglect, 2008; 20 (3): 276-300. - Elder Maltreatment Screen Quality Measures: Elder Maltreatment Screen and Follow-Up Plan Elder Maltreatment Screen: <Negative, No Follow-Up Plan Required> [G4742]
--- NOTE | 2019-02-11 21:16 | CT ANGIOGRAM REPORT ---
EXAM: CT ANGIOGRAM CHEST CTA w contrast HISTORY: CHEST PAIN. COMPARISON: 08/28/2018. TECHNIQUE: CTA of the thorax was performed following the IV administration of contrast. Maximum intensity projecting reformatted images are created for interpretation. FINDINGS: The aorta is suboptimally assessed due to pulsation artifact. No thoracic aortic aneurysm. No evidence for dissection. No filling defect is identified within the pulmonary arteries. No mediastinal adenopathy. A large hiatal hernia containing nearly the entire stomach, along with the distal pancreas. 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 No destructive osseous lesion is identified. Chronic T12 compression fracture. Evaluation of the lungs is suboptimal due to respiratory motion. Minimal atelectasis at the lung bases. IMPRESSION: NEGATIVE CTA OF THE THORAX FOR ACUTE ABNORMALITY. JOB NUMBER: [id number] [facility]
--- NOTE | 2019-02-12 12:32 | Cardiology Consult ---
DATE OF CONSULTATION: 02/11/2019 REASON FOR CONSULTATION: Chest pain. HISTORY OF PRESENT ILLNESS: This is a very pleasant 83-year-old female with a history of coronary artery disease, pulmonary embolism, and mitral regurgitation. 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 Her previous cardiac catheterization in 2016 demonstrated patent stent in the RCA and no significant obstructive disease. She does refuse statin therapy due to myalgias. In February 2018 she was diagnosed with bilateral pulmonary embolisms. Echocardiography in 2018 demonstrated normal ejection fraction of 50% to 55%, grade 1 diastolic dysfunction, [id number] mitral regurgitation, and [id number] aortic regurgitation. The patient presented to the emergency department for further evaluation due to chest pain and diaphoresis. The patient states that she has been having the right-sided chest pain for the past 5-7 days. She thought nitroglycerin helped at one time. The pain has been overall constant. It does not get worse with exertion. It does get better if she presses on it. The patient denies any increased exertional dyspnea, orthopnea, or PND. She denies any palpitations or presyncope. She denies any lower extremity edema. The patient states that she has a tube in her ear that has not been able to be removed, and she was working at trying to get some dry blood out of her ear when she became nauseated and sat down and was diaphoretic and had the continued chest pain. The chest pain did not get any worse and the chest pain is still present. Her troponin was negative x2 in the emergency department. PAST MEDICAL HISTORY: Coronary artery disease, pulmonary embolism, sleep apnea, hyperlipidemia, and hypertension. REVIEW OF SYSTEMS: Constitutional: Denies fever or chills, change in weight. HEENT: Denies change in vision. Denies change in hearing. She is positive for hearing loss. Denies congestion. No difficulty swallowing. Respiratory: Denies cough or dyspnea or hemoptysis. Cardiovascular: Positive chest pain. Negative palpitations, negative dyspnea on exertion. Endocrine: Denies fatigue or heat/cold intolerance. Gastrointestinal: No recurrent nausea, abdominal pain, constipation, or diarrhea. Genitourinary: Denies dysuria or hematuria. Musculoskeletal: Denies any arthralgia or back pain. Does complain of chronic shoulder tightness. Skin: Denies any bruising or lesions. Neurological: Denies any abnormal gait, confusion, headache, numbness or tingling. Psychiatric: Denies any anxiety or depression. Hematologic/Lymphatics: Positive for blood clots. SOCIAL HISTORY: Previous smoker. Alcohol none. Drug use none. FAMILY HISTORY: Heart disease positive in mother, brother, and sister. ALLERGIES: Listed to CIPRO, BACTRIM. HOME MEDICATIONS: 1. Xarelto 20 mg daily. 2. Aspirin 81 mg daily. 3. Folic acid. 4. Hydrocodone/acetaminophen 5/325 mg q.6 h. p.r.n. 5. Levothyroxine 50 mcg daily. 6. Lisinopril/hydrochlorothiazide 10/12.5 daily. 7. Multivitamin daily. 8. Nitrostat 0.4 mg sublingual p.r.n. CURRENT MEDICATIONS: 1. Acetaminophen 500 mg daily. 2. Aspirin 325 mg daily. 3. Benadryl 25 mg p.o. q.6 h. 4. Neurontin 300 mg p.o. b.i.d. 5. Hydrochlorothiazide 12.5 mg daily. 6. Levothyroxine 50 mcg daily. 7. Zestril 10 mg daily. 8. Nitrostat 0.4 mg daily. 9. Xarelto 20 mg p.o. daily. PHYSICAL EXAMINATION: VITAL SIGNS: Blood pressure 116/58, pulse 72. She is afebrile. Respirations 67, O2 saturation 94%. GENERAL: The patient is alert and oriented x3. Answers questions appropriately. Does not appear to be in any acute distress. HEENT: Normocephalic and atraumatic. Extraocular movements are intact. Pupils are equal and round. NECK: Supple without lymphadenopathy, thyromegaly, or bruit. CARDIOVASCULAR: Regular rate and rhythm. No significant murmurs are appreciated. LUNGS: Clear to auscultation in all lung bassett without wheezes, rales, or rhonchi. ABDOMEN: Soft and nontender. Bowel sounds present in all 4 quadrants. EXTREMITIES: No edema, 2+ pulses bilaterally. SKIN: Warm and dry. DIAGNOSTIC STUDIES: WBC 6.3, hemoglobin 12, hematocrit 37.5, platelets 257, D- dimer 0.50. Sodium 140, potassium 3.3, chloride 102, CO2 26, BUN 16, creatinine 0.6, TSH 2.47. EKG demonstrated left bundle-branch block at a rate of 82 beats per minute. ASSESSMENT: 1. Chest pain atypical. Chest pain is reproducible with palpation, and pressing on right chest wall improves discomfort. 2. Episode of nausea and diaphoresis. Probably vasovagal event due to inner ear stimulation. No recurrence since admission. PLAN: The patient does not require any further cardiac evaluation at this time. The patient to follow up with Dr. Patton in the next 2-4 weeks. She was instructed to contact our office if she had further cardiac concerns prior to her appointment. Thank you for the opportunity to participate in this patient's care. This case was discussed with Dr. Patton who agrees with the above. EARNEST
== END 2019-02-11 16:50 | disposition home or self-care (01) ==
LOC: ER 18:31 → MEDSURG 21:39
PROVIDERS: ADMIT Internal Medicine; ATTEND Internal Medicine
DX: R07.9 Chest pain, unspecified (principal); I50.9 Heart failure, unspecified; I25.2 Old myocardial infarction; E03.9 Hypothyroidism, unspecified; M06.9 Rheumatoid arthritis, unspecified; Z87.891 Personal history of nicotine dependence; Z95.5 Presence of coronary angioplasty implant and graft; Z86.711 Personal history of pulmonary embolism; Z79.01 Long term (current) use of anticoagulants; Z86.73 Personal history of transient ischemic attack (TIA), and cerebral infarction without residual deficits
CPT/HCPCS: 82550; 85025; 82553 ×2; 80053; 84443; 84484 ×2; 85379; 83880; 71275; 93005 ×2; 93010; G0378 ×2; Q9967; J3490; 99221; 99285

== ENCOUNTER 2019-04-29 15:28 | Emergency (ER) | payer MEDICARE ==
--- NOTE | 2019-04-29 15:54 | Emergency Department Record ---
History of Present Illness - General Chief Complaint: Chest Pain Stated Complaint: CHEST TIGHTNESS/DIZZINESS Time Seen by Provider: 04/29/19 15:37 Source: Patient Mode of Arrival: Ambulatory Limitations: No limitations - History of Present Illness Initial Comments: The patient is here due to having CP 5 days ago that resolved with 2 SL NTG's. She denied any SOB, MARK, or sweating with it. Since she has had intermittent dizziness which she describes as a movement type of feeling and also lightheaded like she is going to faint. The symptoms have been coming and going for the last 4 days. She also has had a mild RIVAS but denies any fall or trauma. The patient does have an extensive cardiac hx and did have a neg Heart Cath in 2017 for any acute blockages. She does see Dr. Patton and is scheduled for a cardiac echo next week due to valvular dz. The patient is also on Xarelto due to PE's in the past but did have a neg chest CT in January of this year. MD Complaint: Chest pain Onset/Timin -: Days(s) Pain Location: Substernal Improves With: Nothing Worsens With: Nothing Treatments Prior to Arrival: None - Related Data Home Medications Medication Instructions Recorded Confirmed Last Taken Tramadol HCl 50 mg PO ASDIR 04/29/19 04/29/19 Unknown Previous Rx's Medication Instructions Recorded Rivaroxaban [Xarelto] 20 mg PO DAILY 30 Days #30 tab 03/17/18 Doxycycline Monohydrate [Mondoxyne 100 mg PO BID 7 Days #14 capsule 04/29/19 Nl] Allergies Allergy/AdvReac Type Severity Reaction Status Date / Time ciprofloxacin [From Cipro] Allergy Intermediate HIVES Verified 04/29/19 15:37 ciprofloxacin HCl Allergy Intermediate HIVES Verified 04/29/19 15:37 [From Cipro] sulfamethoxazole Allergy Mild ITCHING Verified 04/29/19 15:37 [From Bactrim] trimethoprim [From Bactrim] Allergy Mild ITCHING Verified 04/29/19 15:37 Travel Screening - Travel/Exposure Within Last 30 Days Have you traveled within the last 30 days?: No Review of Systems Constitutional: Denies: Chills, Fever Eyes: Denies: Eye discharge ENT: Denies: Congestion Respiratory: Denies: Dyspnea Cardiovascular: Reports: Chest pain. Denies: Dyspnea on exertion Endocrine: Reports: Fatigue Gastrointestinal: Denies: Diarrhea, Vomiting Genitourinary: Denies: Dysuria Musculoskeletal: Denies: Arthralgia Skin: Denies: Bruising Past Medical History - SOCIAL HISTORY Smoking Status: Former smoker Alcohol Use: None Drug Use: None - RESPIRATORY Hx Respiratory Disorders: Yes Hx Bronchitis: Yes Hx Pneumonia: Yes Hx Pulmonary Embolism: Yes (2010) - CARDIOVASCULAR Hx Cardio Disorders: Yes Hx CHF: Yes Hx Deep Vein Thrombosis: Yes Hx Heart Attack: Yes (2011) - NEURO Hx Neuro Disorders: Yes 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) - GI Hx GI Disorders: No - Hx Genitourinary Disorders: No - ENDOCRINE Hx Endocrine Disorders: No Hx Diabetes: No Hx Thyroid Disease: Yes - MUSCULOSKELETAL Hx Musculoskeletal Disorders: Yes Hx Arthritis: Yes (rheumatoid) Hx Back Injury: Yes (1997) - PSYCH Hx Psych Problems: No - HEMATOLOGY/ONCOLOGY Hx Hematology/Oncology Disorders: No Family Medical History Any Significant Family History?: Yes Hx Cancer: Brother/Sister, Grandparents *Cancer Comment: breast cancer Hx Dementia: Father Hx Diabetes: Children Hx Heart Disease: Mother, Brother/Sister *Heart Comment: mi Physical Exam - General General Appearance: Alert, Oriented x3, Cooperative, No acute distress - Head Head exam: Atraumatic, Normocephalic, Normal inspection - Eye Eye exam: Normal appearance, PERRL - ENT Throat exam: Normal inspection. negative: Tonsillar erythema, Tonsillar exudate - Neck Neck exam: Normal inspection, Full ROM. negative: Tenderness - Respiratory Respiratory exam: Normal lung sounds bilaterally. negative: Respiratory distress - Cardiovascular Cardiovascular Exam: Regular rate, Normal rhythm, Normal heart sounds - GI/Abdominal GI/Abdominal exam: Soft, Normal bowel sounds. negative: Tenderness - Extremities Extremities exam: Normal inspection, Full ROM, Normal capillary refill. negative: Tenderness - Back Back exam: Reports: Normal inspection - Neurological Neurological exam: Alert, Normal gait. negative: Abnormal gait, Motor sensory deficit - Psychiatric Psychiatric exam: negative: Anxious - Skin Skin exam: negative: Rash Course Vital Signs 04/29/19 15:32 Temperature 97.8 F Pulse Rate 72 Respiratory 20 Rate Blood Pressure 139/71 Pulse Ox 95 - Reevaluation(s) Reevaluation #1: The patient is doing well at this time and denies any pain or discomfort. I did explain to her that her workup here is neg. The head CT did demonstrate acute on chronic sinusitis which could be the cause of the patient's mild pain and dizziness. Due to her extensive medical hx I did recommend hospital admission for monitoring and more testing but the patient is refusing. She understands the risks of refusing the plan to admit which includes going home and having an [place], stroke, becoming disabled and even dying. The patient understands and accepts the risks. She is to see her PCP next week for recheck. 04/29/19 17:30 Medical Decision Making - Data Complexity MDM Data: X-Ray Ordered and/or Reviewed, EKG Ordered and/or Reviewed - Lab Data Result diagrams: 04/29/19 15:55 04/29/19 15:55 - EKG Data -: EKG Interpreted by Me EKG: No Acute Changes, Unchanged From Previous - Radiology Data Radiology results: Report reviewed (Head CT: Neg for hemorrhage, prob acute on chronic sinusitis.) Disposition Disposition: Discharge Clinical Impression: Sinusitis Qualifiers: Sinusitis location: unspecified location Chronicity: unspecified Qualified Code(s): J32.9 - Chronic sinusitis, unspecified Disposition: Home, Self-Care Condition: (2) Stable Instructions: Sinusitis (ED) Additional Instructions: Please continue your regular medicines and please take the Doxycycline as directed. Please see Dr. Patton next week as planned and return to the ER for any worsening symptoms. Prescriptions: Doxycycline Monohydrate [Mondoxyne Nl] 100 mg PO BID 7 Days #14 capsule Forms: Patient Portal Access Time of Disposition: 17:25 Quality - Quality Measures Quality Measures: N/A - Blood Pressure Screening View Details: Yes Does Patient Have Any of the Following: No Blood Pressure Classification: Pre-Hypertensive BP Reading Systolic Measurement: 139 Diastolic Measurement: 71 Screening for High Blood Pressure: < Pre-Hypertensive BP, F/U Documented > [G8950] Pre-Hypertensive Follow-up Interventions: Referral to alternative/primary care provider.
[2019-04-29 16:10] LABS: ABSOLUTE NEUTROPHIL COUNT 6.28; BASO % 0.4 % (0-6); EOS % 2.4 % (0-6); GRAN % 69.8 % (47-80); HEMATOCRIT 41.9 % (35.0-47.0); HEMOGLOBIN 13.2 gm/dl (11.6-16.0); LYMPH % 17.7 % (16-45); MEAN CELL VOLUME 88.8 fl (81-97); MEAN CORPUSCULAR HGB CONC 31.5 g/dl (32-36); MEAN PLATELET VOLUME 9.6 fl (7.4-10.4); MONO % 9.7 % (0-9); PLATELET COUNT 367 K/uL (130-400); RED BLOOD COUNT 4.72 M/uL (3.80-5.40); RED CELL DISTRIBUTION WIDTH 14.3 % (11.5-14.5)
[2019-04-29 16:18] LABS: INR 1.1; PARTIAL THROMBOPLASTIN TIME 28.7 SECONDS (24.5-39.1); PROTHROMBIN TIME (PATIENT) 11.6 SECONDS (9.5-12.1)
[2019-04-29 16:34] LABS: BLOOD UREA NITROGEN 25 mg/dL (8-23); CREATININE 0.9 mg/dL (0.5-0.9); EST GLOMERULAR FILTRATION RATE > 60 mL/min; TOTAL PROTEIN 6.9 g/dL (6.6-8.7)
[2019-04-29 16:36] LABS: GLUCOSE,RANDOM 131 mg/dL (74-109)
[2019-04-29 16:39] LABS: ALB/GLOB RATIO 1.8 (1.1-1.8); ALBUMIN 4.4 g/dL (4.0-5.0); ALKALINE PHOSPHATASE 57 U/L (35-104); ALT/SGPT 12 U/L (<33); AST/SGOT 20 U/L (10.0-35.0); CREATINE PHOSPHOKINASE 85 U/L (26-192)
[2019-04-29 16:41] LABS: CKMB 4.3 ng/mL (<3.77)
[2019-04-29 16:51] LABS: THYROID STIMULATING HORMONE 1.55 uIU/mL (0.270-4.20)
--- NOTE | 2019-04-30 14:02 | CT SCAN REPORT ---
EXAM: CT SCAN OF THE HEAD HISTORY: PATIENT HAS A HISTORY OF HEADACHE AND VERTIGO. TECHNIQUE: Serial axial CT scan of the head was performed at 2.5 mm intervals from the base of the skull to the apex without the use of intravenous contrast. Comparison: MRI of the brain dated 05/23/06 is provided. FINDINGS: Mild to moderate generalized parenchymal volume loss is noted. There is no mass or mass effect. The cobos and white differentiation appear within normal limits. There is no CT evidence of intra or extraaxial fluid collection to suggest bleeding. Bone windows demonstrate no CT evidence of a fracture or dislocation of the skull. Mild to moderate mucosal thickening is noted within the bilateral sphenoid sinuses with mild air fluid fluid levels. These findings suggest mild acute and chronic sinusitis. Clinical correlation is recommended. IMPRESSION: 1. MILD TO MODERATE GENERALIZED PARENCHYMAL VOLUME LOSS IS NOTED WITHOUT CT EVIDENCE OF AN ACUTE INTRACRANIAL PROCESS. 2. FINDINGS ARE SUGGESTIVE OF MILD ACUTE AND CHRONIC SINUSITIS DISCUSSED ABOVE. JOB NUMBER: [id number] [facility]TDD
== END 2019-04-29 17:46 | disposition home or self-care (01) ==
LOC: ER 15:28
DX: J32.9 Chronic sinusitis, unspecified (principal); R07.89 Other chest pain; R42 Dizziness and giddiness; R51 Headache; Z87.891 Personal history of nicotine dependence; Z79.01 Long term (current) use of anticoagulants; I25.2 Old myocardial infarction; I50.9 Heart failure, unspecified
CPT/HCPCS: 70450; 80053; 82550; 82553; 84443; 84484; 85025; 85610; 85730; 93005; 93010; 99284